=== PATIENT | male | born 1930 | race Caucasian/White ===

== ENCOUNTER 2019-07-31 19:57 | Inpatient (IN) | payer MEDICARE ==
[~2019-07-31] VITALS: Ht 175.3 cm; Wt 79.4 kg
--- NOTE | 2019-07-31 21:42 | PDOC ---
Exam Note: Ralph Note: Please also refer to the separate dictated note~for this date of service dictated separately. Discussed the patient with Nursing staff reviewed the chart.~Reviewed interim history and current functioning. Reviewed vital signs,~Labs/ Radiology~and current medications noted below. Continue current treatment with the changes noted in the dictated addendum note Current Medications: I have reviewed the current psychotropics carefully including drug interactions. Risk benefit ratio favors no change other than as noted in my dictated progress note. DENVER RAY MD Jul 31, 2019 21:42
[2019-07-31] MEDS ORDERED: METO50TA6 PO (21:56)
[2019-07-31] MEDS ORDERED: POLY2500 MC (21:56)
[2019-07-31] MEDS ORDERED: ACET650T6 PO (21:56)
[2019-07-31] MEDS ORDERED: MECL25TA3 PO (21:56)
[2019-07-31] MEDS ORDERED: RIVA1PAT22 TD (21:56)
[2019-07-31] MEDS ORDERED: METF500T16 PO (21:56)
[2019-07-31] MEDS ORDERED: ASPI325T8 PO (21:56)
[2019-07-31] MEDS ORDERED: FERR325T14 PO (21:56)
[2019-07-31] MEDS ORDERED: NITR0.4T24 SL (21:56)
[2019-07-31] MEDS ORDERED: ACET-1707 PO (21:56)
[2019-07-31] MEDS ORDERED: NIFE-11 PO (21:56)
[2019-07-31] MEDS ORDERED: CYAN-25 PO (21:56)
[2019-07-31] MEDS ORDERED: GLIP5TAB10 PO (21:56)
[2019-07-31] MEDS ORDERED: SITA50TA PO (21:56)
[2019-07-31] MEDS ORDERED: QUET25TA5 PO (22:05)
[2019-07-31] MEDS ORDERED: QUET50TA5 PO (22:05)
[2019-07-31] MEDS ORDERED: OLAN5TAB9 PO (22:05)
[2019-07-31] MEDS ORDERED: LORA0.5T PO (22:05)
[2019-07-31] MEDS ORDERED: METHYL SALICYLATE/MENTHOL TOPICAL OINTMENT 57GM TUBE. TP PRN (22:15)
[2019-07-31] MEDS ORDERED: MAG HYDROX/AL HYDROX/SIMETH 30 ML ORAL.SUSP PO PRN (22:15)
[2019-07-31] MEDS ORDERED: MAGNESIUM HYDROXIDE 2,400 MG/30 ML ORAL.SUSP. PO PRN (22:15)
[2019-07-31] MEDS ORDERED: NITROGLYCERIN SUBLINGUAL 0.4 MG BOTTLE OF 25. SL PRN (22:15)
[2019-07-31] MEDS: MECLIZINE 12.5 MG TABLET. PO SCH (22:29)
[2019-07-31] MEDS: QUEtiapine 25 MG TABLET. PO SCH (22:29)
[2019-07-31] MEDS: FERROUS SULFATE 325 MG TABLET. PO SCH (22:29)
[2019-07-31] MEDS: METOPROLOL TART IMMED RELEASE 50 MG TABLET PO SCH (22:30)
[2019-07-31] MEDS: glipiZIDE 5 MG TABLET PO SCH (22:31)
[2019-07-31] MEDS: diphenhydrAMINE HCL 25 MG CAPSULE PO SCH (22:32)
[2019-07-31] MEDS: ACETAMINOPHEN 500 MG TABLET PO SCH (22:32)
[2019-08-01] MEDS: OLANZapine 5 MG TABLET PO PRN (03:17)
[2019-08-01 05:39] VITALS: BP 133/64
[2019-08-01] MEDS: FERROUS SULFATE 325 MG TABLET. PO SCH ×3 (07:55→20:50)
[2019-08-01] MEDS: glipiZIDE 5 MG TABLET PO SCH ×2 (07:55→20:51)
[2019-08-01] MEDS: METOPROLOL TART IMMED RELEASE 50 MG TABLET PO SCH ×2 (07:55→21:08)
[2019-08-01] MEDS: MECLIZINE 12.5 MG TABLET. PO SCH ×2 (07:56→20:51)
[2019-08-01] MEDS: QUEtiapine 50 MG TABLET. PO SCH (08:03)
[2019-08-01] MEDS: ASPIRIN 325 MG TABLET PO SCH (08:04)
[2019-08-01] MEDS: LINAGLIPTIN 5 MG TABLET PO SCH (08:04)
[2019-08-01] MEDS: metFORMIN 500 MG TABLET PO SCH ×2 (08:04→15:45)
[2019-08-01] MEDS: CYANOCOBALAMIN (VITAMIN B-12) 1,000 MCG TABLET. PO SCH (08:04)
[2019-08-01] MEDS: RIVASTIGMINE 4.6MG PATCH. TD SCH (08:05)
[2019-08-01] MEDS: ACETAMINOPHEN 325 MG TABLET PO SCH ×2 (08:05→15:45)
[2019-08-01] MEDS: POLYETHYLENE GLYCOL 3350 17 GM PACKET. PO SCH (08:05)
[2019-08-01 08:20] LABS: BASO # 0.1 x10^3/uL (0.0-0.2); BASO % 1 % (0-3); EOS # 0.2 x10^3/uL (0.0-0.7); EOS % 2 % (0-3); HEMATOCRIT 32.5 % (39.0-53.0); HEMOGLOBIN 10.3 g/dL (13.0-17.5); LYMPH # 1.8 x10^3/uL (1.0-4.8); LYMPH % 15 % (24-48); MEAN CORPUSCULAR HEMOGLOBIN 32 pg (25-35); MEAN CORPUSCULAR HGB CONC 32 g/dL (31-37); MEAN CORPUSCULAR VOLUME 100 fL (79-100); MONO # 1.9 x10^3/uL (0.0-1.1); MONO % 16 % (0-9); NEUT % 67 % (31-73); PLATELET COUNT 445 x10^3/uL (140-400); RED BLOOD COUNT 3.27 x10^6/uL (4.30-5.70); RED CELL DISTRIBUTION WIDTH 12.9 % (11.5-14.5); WHITE BLOOD COUNT 11.9 x10^3/uL (4.0-11.0)
[2019-08-01 08:39] LABS: ALBUMIN 2.8 g/dL (3.4-5.0); ALBUMIN/GLOBULIN RATIO 0.5 (1.0-1.7); CALCIUM 9.5 mg/dL (8.5-10.1); CREATININE 1.6 mg/dL (0.7-1.3); GFR 41.1; MAGNESIUM 1.9 mg/dL (1.8-2.4); TOTAL BILIRUBIN 0.6 mg/dL (0.2-1.0); TOTAL PROTEIN 8.1 g/dL (6.4-8.2)
[2019-08-01 11:35] LABS: THYROID STIM HORMONE (TSH) 4.39 uIU/mL (0.358-3.740)
[2019-08-01 12:12] LABS: THYROXINE 6.8 ug/dL (4.5-12.0)
[2019-08-01 15:25] VITALS: BP 112/62
--- NOTE | 2019-08-01 16:21 | RAD ---
Three-view ankle dated 08/01/2019. No comparison available. CLINICAL INDICATION: Pain after injury. FINDINGS: 3 views of right ankle show normal bony alignment. No displaced fracture. No acute osseous or articular abnormality. Talar dome is intact. Surgical ruben over the dorsal aspect of the foot. Mild soft tissue swelling. IMPRESSION: Soft tissue swelling with no evidence of underlying acute bony abnormality. Electronically signed by: Baldo Trent MD (08/01/2019 4:18 PM) [id number]
--- NOTE | 2019-08-01 19:38 | HP ---
ADMIT DATE: 08/01/2019 PSYCHIATRIC ADMISSION HISTORY/EVALUATION IDENTIFYING DATA: The patient is an 89-year-old male referred to us from [facility] where he presented from his assisted living on account of increasing hallucinations, delusions. He was swinging at staff. He was agitated, wandering into other residents' room, threatening to hit staff. He is having sleep and appetite changes, unable to care for himself. He was delusional, fixated, thinking he had trashed her truck and was seeing cats around him. The patient had failed outpatient psychiatric interventions, referred for inpatient psychiatric stabilization. CHIEF COMPLAINT: "I came yesterday." This is accurate. HISTORY OF PRESENT ILLNESS: The patient has a history of early dementia, Alzheimer's vascular. He has been residing at the [facility] living getting increasingly agitated, restless. He also had some movement disorder, was started on Sinemet. The hallucinations got much worse and the Sinemet was stopped. The agitation at the assisted living was significant to a point that attempts at changing his psychotropics including IM Haldol, Seroquel, Zyprexa, Ativan p.r.n. and having a one-on-one sitter all had failed. No clear history of bipolar disorder. MEDICAL HISTORY: Positive for coronary artery disease, hypertension, hyperkalemia, type 2 diabetes mellitus, controlled with oral meds. ALLERGIES: IBUPROFEN, LEVOFLOXACIN, SINEMET. CODE STATUS: DNR. ACCU-CHEKS: None. DIET: Diabetic. Takes medications whole. Ambulates 2-person assist. UA negative at [facility]. CURRENT PSYCHOTROPICS: Exelon patch 4.6 mg a day, Seroquel 25 mg a.m. and 25 mg at bedtime, Ativan p.r.n. and Zyprexa 5 mg t.i.d. p.r.n. FAMILY HISTORY: Noncontributory. SOCIAL HISTORY: No history of alcohol, drug abuse, physical, sexual or elder abuse. He is not known to be a perpetrator. REACTION TO HOSPITALIZATION: The patient accepting of this. ASSETS: Supportive family, stable living at the above facility. MENTAL STATUS EXAMINATION: The patient was seen individually on the evening of 08/01 in his room. He was lying in bed, oriented to himself and situation. He knew he came in the night before. Speech was difficult to understand at times, often response is monosyllabic. Abstraction fair, computation impaired, language function intact, attention span short. Short term memory is impaired. No active hallucinations, suicidal or homicidal ideation. LABORATORY DATA: Reviewed. IMPRESSION: Major neurocognitive disorder, early Alzheimer vascular rule out Lewy body with delusion, depression, behavioral disturbance; anxiety disorder, unspecified; psychotic disorder, unspecified; impulse control disorder, unspecified. Rest unchanged as above. PLAN: Admit to Geropsychiatry Unit at [facility]. I will see the patient daily individually from a psychiatric standpoint. Medical followup per Dr. Cheek. Continue the patient on his current psychotropics. Get his past psychiatric records. We will go ahead and add Remeron 7.5 mg at bedtime to help with his insomnia and should help his anxiety as well. May need to increase the Exelon patch in due course. We will make further adjustments as clinically indicated. MAN Nany RAY MD DR: LEYDI/bethany JOB#: [id number] / [id number]
--- NOTE | 2019-08-01 19:54 | PDOC ---
Exam Note: Ralph Note: Please also refer to the separate dictated note~for this date of service dictated separately.~Patient seen individually. Discussed the patient with Nursing staff reviewed the chart.~Reviewed interim history and current functioning. Reviewed vital signs,~Labs/ Radiology~and current medications noted below. Continue current treatment with the changes noted in the dictated addendum note Assessment: Vital Signs/I&O: Vital Signs Date Time Temp Pulse Resp B/P (MAP) Pulse Ox O2 Delivery O2 Flow Rate FiO2 08/01/19 15:25 97.8 79 18 112/62 (79) 96 08/01/19 05:39 Nasal Cannula 2.0 Labs: Laboratory Tests Test 08/01/19 07:45 White Blood Count 11.9 x10^3/uL (4.0-11.0) H Red Blood Count 3.27 x10^6/uL (4.30-5.70) L Hemoglobin 10.3 g/dL (13.0-17.5) L Hematocrit 32.5 % (39.0-53.0) L Mean Corpuscular Volume 100 fL (79-100) Mean Corpuscular Hemoglobin 32 pg (25-35) Mean Corpuscular Hemoglobin Concent 32 g/dL (31-37) Red Cell Distribution Width 12.9 % (11.5-14.5) Platelet Count 445 x10^3/uL (140-400) H Neutrophils (%) (Auto) 67 % (31-73) Lymphocytes (%) (Auto) 15 % (24-48) L Monocytes (%) (Auto) 16 % (0-9) H Eosinophils (%) (Auto) 2 % (0-3) Basophils (%) (Auto) 1 % (0-3) Neutrophils # (Auto) 8.0 x10^3uL (1.8-7.7) H Lymphocytes # (Auto) 1.8 x10^3/uL (1.0-4.8) Monocytes # (Auto) 1.9 x10^3/uL (0.0-1.1) H Eosinophils # (Auto) 0.2 x10^3/uL (0.0-0.7) Basophils # (Auto) 0.1 x10^3/uL (0.0-0.2) Sodium Level 140 mmol/L (136-145) Potassium Level 4.0 mmol/L (3.5-5.1) Chloride Level 103 mmol/L (98-107) Carbon Dioxide Level 28 mmol/L (21-32) Anion Gap 9 (6-14) Blood Urea Nitrogen 36 mg/dL (8-26) H Creatinine 1.6 mg/dL (0.7-1.3) H Estimated GFR (Cockcroft-Gault) 41.1 BUN/Creatinine Ratio 23 (6-20) H Glucose Level 136 mg/dL (70-99) H Calcium Level 9.5 mg/dL (8.5-10.1) Magnesium Level 1.9 mg/dL (1.8-2.4) Iron Level 13 ug/dL (65-175) L Total Iron Binding Capacity 166 ug/dL (250-450) L Iron Saturation 8 % (15-34) L Total Bilirubin 0.6 mg/dL (0.2-1.0) Aspartate Amino Transferase (AST) 23 U/L (15-37) Alanine Aminotransferase (ALT) 14 U/L (16-63) L Alkaline Phosphatase 84 U/L (46-116) Total Protein 8.1 g/dL (6.4-8.2) Albumin 2.8 g/dL (3.4-5.0) L Albumin/Globulin Ratio 0.5 (1.0-1.7) L Triglycerides Level 73 mg/dL (0-150) Cholesterol Level 108 mg/dL (0-200) LDL Cholesterol, Calculated 56 mg/dL (0-100) VLDL Cholesterol, Calculated 14 mg/dL (0-40) Non-HDL Cholesterol Calculated 70 mg/dL (0-129) HDL Cholesterol 38 mg/dL (40-60) L Cholesterol/HDL Ratio 2.0 Thyroid Stimulating Hormone (TSH) 4.390 uIU/mL (0.358-3.740) Thyroxine (T4) 6.8 ug/dL (4.5-12.0) Total Triiodothyronine (TT3) 78 ng/dL (71-180) Current Medications: Meds: Current Medications Medications (Trade) Dose Ordered Sig/Andressa Route PRN Reason Start Time Stop Time Status Last Admin Dose Admin Aspirin (Dave Aspirin) 325 mg DAILY PO 08/01/19 09:00 08/01/19 08:05 Cyanocobalamin (Vitamin B-12) 1,000 mcg DAILY PO 08/01/19 09:00 08/01/19 08:05 Ferrous Sulfate (Feosol) 325 mg TID PO 07/31/19 23:00 08/01/19 14:57 Glipizide (Glucotrol) 5 mg BID PO 07/31/19 23:00 08/01/19 07:56 Metformin HCl (Glucophage) 1,000 mg BIDWMEALS PO 08/01/19 08:00 08/01/19 15:46 Metoprolol Tartrate (Lopressor) 50 mg BID PO 07/31/19 23:00 08/01/19 07:55 Rivastigmine (Exelon) 1 patch DAILY TD 08/01/19 09:00 08/01/19 08:05 Acetaminophen (Tylenol) 650 mg BIDWMEALS PO 08/01/19 08:00 08/01/19 15:46 Diphenhydramine HCl (Benadryl) 25 mg QHS PO 07/31/19 23:00 07/31/19 22:33 Meclizine HCl (Antivert) 25 mg BID PO 07/31/19 23:00 08/01/19 07:56 Nifedipine (Procardia Xl) 60 mg DAILY PO 08/01/19 09:00 08/01/19 10:08 Polyethylene Glycol (miraLAX) 17 gm DAILY PO 08/01/19 09:00 08/01/19 08:05 Linagliptin (Tradjenta) 5 mg DAILY PO 08/01/19 09:00 08/01/19 08:05 Olanzapine (ZyPREXA) 5 mg TID PRN PRN PO ANXIETY / AGITATION 07/31/19 22:15 08/01/19 03:17 Quetiapine Fumarate (SEROquel) 25 mg HS PO 07/31/19 23:00 07/31/19 22:31 Quetiapine Fumarate (SEROquel) 50 mg DAILY PO 08/01/19 09:00 08/01/19 08:05 Acetaminophen (Tylenol) 500 mg QHS PO 07/31/19 23:00 07/31/19 22:33 I have reviewed the current psychotropics carefully including drug interactions. Risk benefit ratio favors no change other than as noted in my dictated progress note. 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
[2019-08-01] MEDS: ACETAMINOPHEN 500 MG TABLET PO SCH (20:50)
[2019-08-01] MEDS: diphenhydrAMINE HCL 25 MG CAPSULE PO SCH (20:50)
[2019-08-01] MEDS: QUEtiapine 25 MG TABLET. PO SCH (20:51)
--- NOTE | 2019-08-01 21:46 | CONS ---
DATE OF CONSULTATION: 08/01/2019 REASON FOR CONSULTATION: Medical management. HISTORY OF PRESENT ILLNESS: The patient is an 89-year-old male patient who apparently was referred from [facility] where he was evaluated and apparently he was admitted on account of swinging at staff, hallucinating, seeing cats, wandering into other residents' rooms and threatening to hit staff, all this in a background of major neurocognitive disorder, vascular Alzheimer with delusion, depression, anxiety disorder, impulse control disorder. Medically, he has multiple medical problems including hypertension, type 2 diabetes, coronary artery disease, chronic dizziness, osteoarthritis and depression. He has also anemia of chronic disease. PAST SURGICAL HISTORY: Unremarkable. PAST PSYCHIATRIC HISTORY: Known to have depression and dementia. SOCIAL HISTORY: The patient has never smoked cigarettes, never drank alcohol or used illicit drugs. He lives in a longterm. ALLERGIES: He is allergic to IBUPROFEN, LEVODOPA and LEVOFLOXACIN. MEDICATIONS: He is currently on following medications: He is on rivastigmine 4.6 mg transdermal patch daily, ferrous sulfate 325 mg 3 times a day, nitroglycerin 0.4 mg sublingually every 5 minutes x 3, metoprolol tartrate 50 mg twice a day, nifedipine 60 mg once a day, aspirin 325 mg once a day, Tylenol 650 mg twice a day, Tylenol with diphenhydramine 1 tablet daily at nighttime for sleep, olanzapine 5 mg 3 times a day, Seroquel 50 mg daily and 25 mg at bedtime. He is also on lorazepam 0.5 mg every 6 hours, meclizine 25 mg twice a day, metformin 1000 mg twice a day, sitagliptin for Januvia 50 mg once a day, glipizide 5 mg twice a day, cyanocobalamin 1000 mcg once a day, polyethylene glycol 17 grams daily. PHYSICAL EXAMINATION: GENERAL: On examining him, he looked well and was clearly in no apparent respiratory distress, slightly pale, no jaundice, cyanosis or thyromegaly. No jugular venous distention. No lower limb edema. VITAL SIGNS: His heart rate was 68, blood pressure was 133/64, temperature was 98.6, respiratory rate was 18 and oxygen saturation was 94% on 2 liters of oxygen by nasal cannula. HEAD, EYES, EARS, NOSE AND THROAT: Showed normocephalic, atraumatic. NECK: Supple. HEART: Showed normal first and second heart sounds with no gallop, rub or murmur. CHEST: Clear to auscultation. No crepitation or rhonchi. ABDOMEN: Distended, soft, nontender. NEUROLOGIC: He is awake, alert, responding at times appropriately. All cranial nerves are intact. He moves extremities without difficulty. 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 He claims that he has broken his right leg, although there is no obvious deformity or swelling. LABORATORY DATA: Showed a white cell count of 11,900, hemoglobin 10, hematocrit 33, MCV 100, and platelet count of 145,000 with normal manual differential. His chemistry showed a serum sodium 140, potassium 4, chloride 103, bicarbonate 28, anion gap of 9, BUN 36, creatinine 1.6, estimated GFR was 41 mL per minute. Her glucose 136, calcium was 9.5, magnesium was 1.9. Her serum iron, TIBC and iron saturation are extremely low. Total bilirubin 0.6, AST, ALT, alkaline phosphatase were all normal. His total protein was 8.1, albumin was 2.8. Serum triglycerides were 73, total cholesterol 108, LDL cholesterol 56, VLDL was 14, HDL cholesterol 38 and the ratio was 2. His TSH was 4.39, total T4 was 6.8. Total T3 was 78. IMPRESSION: In summary, this is an 89-year-old male patient who was admitted for swinging at staff, hallucinating, seeing cats, wandering into other residents' rooms, threatening to hit staff, all this in a background of major neurocognitive disorder, vascular Alzheimer with delusion, depression. Medically, he is known to have coronary artery disease, hypertension, hyperkalemia, and type 2 diabetes. His lab work showed that he has anemia of chronic disease. He has chronic kidney disease. His blood sugar seems to be reasonably controlled. PLAN: My plan is to arrange for him to have a renal Doppler ultrasound and to scan his bladder to make sure that he is not retaining urine. We might have to start him on Flomax and/or finasteride, if deemed necessary. Thank you, Dr. Greene for allowing me to participate in the care of this patient. BONIFACIO KHANNA MD DR: GEORGE/bethany JOB#: [id number] / [id number]
[2019-08-02 01:10] LABS: HEMOGLOBIN A1C 7.3 % (4.8-5.6)
[2019-08-02] MEDS: OLANZapine 5 MG TABLET PO PRN (02:43)
[2019-08-02] MEDS: ACETAMINOPHEN 325 MG TABLET PO PRN (02:44)
[2019-08-02 05:55] VITALS: BP 110/59
[2019-08-02] MEDS: ACETAMINOPHEN 325 MG TABLET PO SCH ×2 (07:43→16:55)
[2019-08-02] MEDS: MECLIZINE 12.5 MG TABLET. PO SCH ×2 (07:43→21:37)
[2019-08-02] MEDS: ASPIRIN 325 MG TABLET PO SCH (07:43)
[2019-08-02] MEDS: metFORMIN 500 MG TABLET PO SCH ×2 (07:43→16:54)
[2019-08-02] MEDS: glipiZIDE 5 MG TABLET PO SCH ×2 (07:44→21:37)
[2019-08-02] MEDS: POLYETHYLENE GLYCOL 3350 17 GM PACKET. PO SCH (07:44)
[2019-08-02] MEDS: FERROUS SULFATE 325 MG TABLET. PO SCH ×3 (07:44→21:34)
[2019-08-02] MEDS: LINAGLIPTIN 5 MG TABLET PO SCH (07:44)
[2019-08-02] MEDS: CYANOCOBALAMIN (VITAMIN B-12) 1,000 MCG TABLET. PO SCH (07:45)
[2019-08-02] MEDS: METOPROLOL TART IMMED RELEASE 50 MG TABLET PO SCH ×2 (07:45→21:51)
[2019-08-02] MEDS: QUEtiapine 50 MG TABLET. PO SCH (07:45)
[2019-08-02] MEDS: RIVASTIGMINE 4.6MG PATCH. TD SCH (07:45)
--- NOTE | 2019-08-02 07:48 | RAD ---
Examination: RENAL COMPLETE BILATERAL History: Impaired renal function. Comparison/Correlation: None Findings: Renal ultrasound exam was performed by portable technique. Right kidney measures 9.44 cm x 3.92 cm x 4 cm. Left kidney measures 9.6 cm x 2.4 cm x 4.7 cm. Visualization of the kidneys is limited due to overlying bowel gas and the patient's inability to hold his breath during the exam. There is no hydronephrosis or evidence of nephrolithiasis. Renal cortical echotexture is within normal limits. Cortical thinning bilaterally is noted diffusely. Renal contours are grossly unremarkable on this limited exam. Urinary bladder is mostly decompressed but unremarkable. Impression: No hydronephrosis. Electronically signed by: Sea Duvall MD (08/02/2019 7:45 AM) [facility]
[2019-08-02 16:04] VITALS: BP 126/55
[2019-08-02 16:25] LABS: BILIRUBIN,URINE NEG (NEG); CLARITY,URINE HAZY; COLOR,URINE YELLOW; GLUCOSE,URINE NEG (NEG); NITRITE,URINE NEG (NEG); UROBILINOGEN,URINE 0.2 mg/dL (0.2 mg/dL)
[2019-08-02 16:26] LABS: AMORPHOUS SEDIMENT,UR PRESENT /HPF; BACTERIA,URINE 0 /HPF (0-FEW); RBC,URINE OCC /HPF (0-2); SQUAMOUS EPITHELIAL CELL,UR OCC /LPF; WBC,URINE OCC /HPF (0-4)
[2019-08-02] MEDS: diphenhydrAMINE HCL 25 MG CAPSULE PO SCH (21:34)
[2019-08-02] MEDS: ACETAMINOPHEN 500 MG TABLET PO SCH (21:34)
[2019-08-02] MEDS: QUEtiapine 25 MG TABLET. PO SCH (21:34)
[2019-08-02] MEDS: MIRTAZAPINE 7.5 MG TABLET. PO SCH (21:37)
--- NOTE | 2019-08-02 21:40 | PDOC ---
Exam Note: Ralph Note: Please also refer to the separate dictated note~for this date of service dictated separately.~Patient seen individually. Discussed the patient with Nursing staff reviewed the chart.~Reviewed interim history and current functioning. Reviewed vital signs,~Labs/ Radiology~and current medications noted below. Continue current treatment with the changes noted in the dictated addendum note Assessment: Vital Signs/I&O: Vital Signs Date Time Temp Pulse Resp B/P (MAP) Pulse Ox O2 Delivery O2 Flow Rate FiO2 08/02/19 16:04 97.2 65 20 126/55 (78) 96 3.0 08/01/19 05:39 Nasal Cannula I & O 08/01/19 08/01/19 08/02/19 15:00 23:00 07:00 Intake Total 480 ml 120 ml Output Total 400 ml Balance 80 ml 120 ml Labs: Laboratory Tests Test 08/02/19 15:31 Urine Collection Type Unknown Urine Color Yellow Urine Clarity Hazy Urine pH 5.0 Urine Specific Foster 1.015 Urine Protein Trace (NEG-TRACE) Urine Glucose (UA) Neg mg/dL (NEG) Urine Ketones (Stick) Neg mg/dL (NEG) Urine Blood Trace (NEG) Urine Nitrite Neg (NEG) Urine Bilirubin Neg (NEG) Urine Urobilinogen Dipstick 0.2 mg/dL (0.2 mg/dL) Urine Leukocyte Esterase Neg (NEG) Urine RBC Occ /HPF (0-2) Urine WBC Occ /HPF (0-4) Urine Squamous Epithelial Cells Occ /LPF Urine Amorphous Sediment Present /HPF Urine Bacteria 0 /HPF (0-FEW) Urine Mucus Slight /LPF Current Medications: Meds: Current Medications Medications (Trade) Dose Ordered Sig/Andressa Route PRN Reason Start Time Stop Time Status Last Admin Dose Admin Mirtazapine (Remeron) 7.5 mg QHS PO 08/02/19 21:00 08/02/19 21:37 I have reviewed the current psychotropics carefully including drug interactions. Risk benefit ratio favors no change other than as noted in my dictated progress note. 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
[2019-08-03 06:10] VITALS: BP 106/56
[2019-08-03] MEDS: RIVASTIGMINE 4.6MG PATCH. TD SCH (07:54)
[2019-08-03] MEDS: POLYETHYLENE GLYCOL 3350 17 GM PACKET. PO SCH (07:54)
[2019-08-03] MEDS: METOPROLOL TART IMMED RELEASE 50 MG TABLET PO SCH ×2 (07:55→19:27)
[2019-08-03] MEDS: CYANOCOBALAMIN (VITAMIN B-12) 1,000 MCG TABLET. PO SCH (07:55)
[2019-08-03] MEDS: FERROUS SULFATE 325 MG TABLET. PO SCH ×3 (07:55→19:26)
[2019-08-03] MEDS: metFORMIN 500 MG TABLET PO SCH ×2 (07:55→17:05)
[2019-08-03] MEDS: ACETAMINOPHEN 325 MG TABLET PO SCH ×2 (07:55→17:05)
[2019-08-03] MEDS: glipiZIDE 5 MG TABLET PO SCH ×2 (07:56→19:26)
[2019-08-03] MEDS: QUEtiapine 50 MG TABLET. PO SCH ×2 (07:56→19:33)
[2019-08-03] MEDS: MECLIZINE 12.5 MG TABLET. PO SCH ×2 (07:56→19:27)
[2019-08-03] MEDS: ASPIRIN 325 MG TABLET PO SCH (07:56)
[2019-08-03] MEDS: LINAGLIPTIN 5 MG TABLET PO SCH (07:56)
[2019-08-03 16:21] VITALS: BP 116/50
[2019-08-03] MEDS: ACETAMINOPHEN 500 MG TABLET PO SCH (19:26)
[2019-08-03] MEDS: MIRTAZAPINE 7.5 MG TABLET. PO SCH (19:26)
[2019-08-03] MEDS: diphenhydrAMINE HCL 25 MG CAPSULE PO SCH (19:31)
[2019-08-03] MEDS: TAMSULOSIN 0.4 MG CAP.ER.24H. PO SCH (19:33)
--- NOTE | 2019-08-03 21:37 | PDOC ---
Exam Note: Ralph Note: Please also refer to the separate dictated note~for this date of service dictated separately.~Patient seen individually. Discussed the patient with Nursing staff reviewed the chart.~Reviewed interim history and current functioning. Reviewed vital signs,~Labs/ Radiology~and current medications noted below. Continue current treatment with the changes noted in the dictated addendum note Assessment: Vital Signs/I&O: Vital Signs Date Time Temp Pulse Resp B/P (MAP) Pulse Ox O2 Delivery O2 Flow Rate FiO2 08/03/19 19:29 100 116/50 08/03/19 16:21 98.9 18 96 08/03/19 06:10 3.0 08/01/19 05:39 Nasal Cannula I & O 08/02/19 08/02/19 08/03/19 14:59 22:59 06:59 Intake Total 600 ml 240 ml Output Total 400 ml 420 ml Balance 600 ml -160 ml -420 ml Current Medications: Meds: Current Medications Medications (Trade) Dose Ordered Sig/Andressa Route PRN Reason Start Time Stop Time Status Last Admin Dose Admin Tamsulosin HCl (Flomax) 0.4 mg QHS PO 08/03/19 21:00 08/03/19 19:33 Quetiapine Fumarate (SEROquel) 75 mg QHS PO 08/03/19 21:00 08/03/19 19:33 I have reviewed the current psychotropics carefully including drug interactions. Risk benefit ratio favors no change other than as noted in my dictated progress note. 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
--- NOTE | 2019-08-03 22:03 | PN ---
DATE: 08/02/2019 PSYCHIATRIC PROGRESS NOTE. This late entry of 08/02/2019 covers the elements not covered in my initial note. SUBJECTIVE: I met with the patient on the evening of 08/02/2019. The patient slept 8 hours previous night. He has had difficulty urinating. Bladder scans are being done and straight cath and I will defer to Dr. Cheek as he may have prostatic enlargement. He remains on 3 liters oxygen, less confused, has some tremors. His daughter is a nurse and called to check in on the patient. This is a question whether he has Parkinson's disease. We will refer to Dr. Fang, Neurology for this. REVIEW OF SYSTEMS: Ambulation impaired. No CV, , pulmonary, eye, ENT system symptoms on review. Has some shortness of breath, remains on O2 supplements. MENTAL STATUS EXAM: Oriented to himself. Insight, judgment, recent memory is impaired. Language function intact. Attention span short. Mood and affect remain somewhat anxious, labile. LABORATORY DATA: Reviewed. IMPRESSION: Unchanged from initial note. PLAN: No change from initial note. MAN Nany RAY MD DR: LEYDI/bethany JOB#: [id number] / [id number]
[2019-08-03] MEDS: ACETAMINOPHEN 325 MG TABLET PO PRN (23:40)
[2019-08-04 05:56] VITALS: BP 120/75
[2019-08-04] MEDS: ASPIRIN 325 MG TABLET PO SCH (07:49)
[2019-08-04] MEDS: METOPROLOL TART IMMED RELEASE 50 MG TABLET PO SCH ×2 (07:49→20:09)
[2019-08-04] MEDS: MECLIZINE 12.5 MG TABLET. PO SCH ×2 (07:49→20:07)
[2019-08-04] MEDS: CYANOCOBALAMIN (VITAMIN B-12) 1,000 MCG TABLET. PO SCH (07:50)
[2019-08-04] MEDS: glipiZIDE 5 MG TABLET PO SCH ×2 (07:50→20:08)
[2019-08-04] MEDS: metFORMIN 500 MG TABLET PO SCH ×2 (07:50→17:13)
[2019-08-04] MEDS: LINAGLIPTIN 5 MG TABLET PO SCH (07:50)
[2019-08-04] MEDS: FERROUS SULFATE 325 MG TABLET. PO SCH ×3 (07:50→20:07)
[2019-08-04] MEDS: ACETAMINOPHEN 325 MG TABLET PO SCH ×2 (07:51→17:12)
[2019-08-04] MEDS: POLYETHYLENE GLYCOL 3350 17 GM PACKET. PO SCH (07:51)
[2019-08-04] MEDS: RIVASTIGMINE 9.5MG PATCH. TD SCH (07:55)
[2019-08-04] MEDS: FINASTERIDE 5 MG TABLET PO SCH (07:55)
[2019-08-04 15:45] VITALS: BP 121/57
[2019-08-04] MEDS: MIRTAZAPINE 15 MG TABLET PO SCH ×2 (20:07→20:52)
[2019-08-04] MEDS: diphenhydrAMINE HCL 25 MG CAPSULE PO SCH (20:07)
[2019-08-04] MEDS: TAMSULOSIN 0.4 MG CAP.ER.24H. PO SCH (20:08)
[2019-08-04] MEDS: QUEtiapine 50 MG TABLET. PO SCH (20:09)
[2019-08-04] MEDS: ACETAMINOPHEN 500 MG TABLET PO SCH (20:10)
--- NOTE | 2019-08-04 21:54 | PDOC ---
Exam Note: Ralph Note: Please also refer to the separate dictated note~for this date of service dictated separately.~Patient seen individually. Discussed the patient with Nursing staff reviewed the chart.~Reviewed interim history and current functioning. Reviewed vital signs,~Labs/ Radiology~and current medications noted below. Continue current treatment with the changes noted in the dictated addendum note Assessment: Vital Signs/I&O: Vital Signs Date Time Temp Pulse Resp B/P (MAP) Pulse Ox O2 Delivery O2 Flow Rate FiO2 08/04/19 20:10 80 121/57 08/04/19 15:45 98.4 24 93 Nasal Cannula 2.0 I & O 08/03/19 08/03/19 08/04/19 15:00 23:00 07:00 Intake Total 600 ml 120 ml 240 ml Output Total 550 ml Balance 600 ml 120 ml -310 ml Current Medications: Meds: Current Medications Medications (Trade) Dose Ordered Sig/Andressa Route PRN Reason Start Time Stop Time Status Last Admin Dose Admin Finasteride (Proscar) 5 mg DAILY PO 08/04/19 09:00 08/04/19 07:55 Rivastigmine (Exelon) 1 patch DAILY TD 08/04/19 09:00 08/04/19 07:55 Mirtazapine (Remeron) 15 mg QHS PO 08/04/19 18:30 08/04/19 20:10 I have reviewed the current psychotropics carefully including drug interactions. Risk benefit ratio favors no change other than as noted in my dictated progress note. 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
--- NOTE | 2019-08-05 00:15 | PN ---
DATE: 08/03/2019 This late entry 08/03/2019, covers elements not covered in my initial note. SUBJECTIVE: I met with the patient evening of 08/03/2019. The patient slept just 3 hours previous night. He remains confused, anxious. Admits to being depressed and sad, somewhat flat affect. Per nursing report, he gets straight catheterization for urinary retention. REVIEW OF SYSTEMS: Difficulty breathing on oxygen supplements, impaired ambulation, difficulty with urination. No CV, , pulmonary, eye system symptoms other than above. MENTAL STATUS EXAM: Oriented to himself and situation. Speech is coherent, has some latency, anxious, somewhat suspicious. Abstraction fair, computation impaired, language function intact, attention span short. Mood and affect somewhat labile. LABORATORY DATA: Reviewed. IMPRESSION: Major neurocognitive disorder; Alzheimer; vascular with delusion; depression; anxiety disorder, unspecified; impulse control disorder, unspecified. PLAN: Start trazodone 50 mg at bedtime p.r.n., march repeat x 1. Increase Seroquel in due course, but for now given some of his withdrawal apathetic appearance during the day. We will change the Seroquel 50 a.m., 25 at bedtime to 75 mg at bedtime, increase Exelon patch from 4.6 mg a day to 9.5 mg a day. Rest unchanged for now. MAN Nany RAY MD DR: LEYDI/bethany JOB#: [id number] / [id number]
[2019-08-05] MEDS: OLANZapine 5 MG TABLET PO PRN ×2 (04:09→23:53)
[2019-08-05 05:58] VITALS: BP 144/79
[2019-08-05] MEDS: glipiZIDE 5 MG TABLET PO SCH ×2 (07:51→19:35)
[2019-08-05] MEDS: METOPROLOL TART IMMED RELEASE 50 MG TABLET PO SCH ×2 (07:51→19:36)
[2019-08-05] MEDS: FERROUS SULFATE 325 MG TABLET. PO SCH ×3 (07:51→19:35)
[2019-08-05] MEDS: MECLIZINE 12.5 MG TABLET. PO SCH ×2 (07:52→19:35)
[2019-08-05] MEDS: POLYETHYLENE GLYCOL 3350 17 GM PACKET. PO SCH (07:54)
[2019-08-05] MEDS: ASPIRIN 325 MG TABLET PO SCH (08:00)
[2019-08-05] MEDS: CYANOCOBALAMIN (VITAMIN B-12) 1,000 MCG TABLET. PO SCH (08:00)
[2019-08-05] MEDS: RIVASTIGMINE 9.5MG PATCH. TD SCH (08:01)
[2019-08-05] MEDS: FINASTERIDE 5 MG TABLET PO SCH (08:01)
[2019-08-05] MEDS: ACETAMINOPHEN 325 MG TABLET PO SCH ×2 (08:01→17:03)
[2019-08-05] MEDS: LINAGLIPTIN 5 MG TABLET PO SCH (08:02)
[2019-08-05] MEDS: metFORMIN 500 MG TABLET PO SCH ×2 (08:02→17:02)
[2019-08-05] MEDS: LORazepam 0.5 MG TABLET PO PRN ×2 (13:20→13:33)
[2019-08-05 15:44] VITALS: BP 124/55
[2019-08-05] MEDS: TAMSULOSIN 0.4 MG CAP.ER.24H. PO SCH (19:35)
[2019-08-05] MEDS: diphenhydrAMINE HCL 25 MG CAPSULE PO SCH (19:35)
[2019-08-05] MEDS: ACETAMINOPHEN 500 MG TABLET PO SCH (19:36)
[2019-08-05] MEDS: MIRTAZAPINE 15 MG TABLET PO SCH (19:36)
[2019-08-05] MEDS: risperiDONE 0.25 MG TABLET. PO SCH (19:40)
--- NOTE | 2019-08-05 21:59 | PDOC ---
Exam Note: Ralph Note: Please also refer to the separate dictated note~for this date of service dictated separately.~Patient seen individually. Discussed the patient with Nursing staff reviewed the chart.~Reviewed interim history and current functioning. Reviewed vital signs,~Labs/ Radiology~and current medications noted below. Continue current treatment with the changes noted in the dictated addendum note Assessment: Vital Signs/I&O: Vital Signs Date Time Temp Pulse Resp B/P (MAP) Pulse Ox O2 Delivery O2 Flow Rate FiO2 08/05/19 19:41 91 124/55 08/05/19 15:44 98.0 18 98 08/05/19 05:58 Nasal Cannula 3.0 I & O 0 08/04/19 08/04/19 08/05/19 15:00 23:00 07:00 Intake Total 600 ml 240 ml Balance 600 ml 240 ml Current Medications: Meds: Current Medications Medications (Trade) Dose Ordered Sig/Andressa Route PRN Reason Start Time Stop Time Status Last Admin Dose Admin Risperidone (RisperDAL) 0.25 mg HS PO 08/05/19 21:00 08/05/19 19:41 I have reviewed the current psychotropics carefully including drug interactions. Risk benefit ratio favors no change other than as noted in my dictated progress note. Diagnosis: Problems: (1) Anxiety disorder (2) Dementia, vascular, with depression (3) Dementia in Alzheimer's disease with depression (4) Major depressive disorder, recurrent episode (5) Impulse control disorder DENVER RAY MD Aug 05, 2019 21:59
[2019-08-06] MEDS: traZODone 50 MG TABLET. PO PRN ×3 (00:58→23:08)
--- NOTE | 2019-08-06 01:07 | PN ---
DATE: 08/04/2019 PSYCHIATRIC PROGRESS NOTE This late entry 08/04/2019 covers the elements not covered in my initial note. SUBJECTIVE: I met with the patient in the evening of 08/04/2019. Jose Angel Lewis RN, the patient slept for three-quarter hours previous night. At night, he was cooperative. He has an indwelling catheter secondary to residual urine postvoid. He is irritable in the morning, but cooperative with medications, taking them whole. He has been in the day room, alert to himself, felt he is in high school. REVIEW OF SYSTEMS: Shortness of breath on O2 supplements, impaired ambulation in wheelchair. No CV, , eye, ENT system symptoms on review. MENTAL STATUS EXAM: Oriented to himself. Insight, judgment, recent and remote memory, attention, concentration and fund of knowledge are poor, consistent with his diagnosis mentioned in my initial note. PLAN: No change from initial note. DENVER RAY MD DR: LEYDI/bethany JOB#: [id number] / [id number]
[2019-08-06] MEDS: ACETAMINOPHEN 325 MG TABLET PO PRN (02:29)
[2019-08-06 05:57] VITALS: BP 123/66
[2019-08-06] MEDS: POLYETHYLENE GLYCOL 3350 17 GM PACKET. PO SCH (07:43)
[2019-08-06] MEDS: ACETAMINOPHEN 325 MG TABLET PO SCH ×2 (07:43→16:46)
[2019-08-06] MEDS: FERROUS SULFATE 325 MG TABLET. PO SCH ×3 (07:44→20:14)
[2019-08-06] MEDS: CYANOCOBALAMIN (VITAMIN B-12) 1,000 MCG TABLET. PO SCH (07:44)
[2019-08-06] MEDS: METOPROLOL TART IMMED RELEASE 50 MG TABLET PO SCH ×2 (07:44→20:12)
[2019-08-06] MEDS: glipiZIDE 5 MG TABLET PO SCH ×2 (07:44→20:12)
[2019-08-06] MEDS: MECLIZINE 12.5 MG TABLET. PO SCH ×2 (07:44→20:10)
[2019-08-06] MEDS: metFORMIN 500 MG TABLET PO SCH ×2 (07:45→16:46)
[2019-08-06] MEDS: RIVASTIGMINE 9.5MG PATCH. TD SCH (07:45)
[2019-08-06] MEDS: FINASTERIDE 5 MG TABLET PO SCH (07:45)
[2019-08-06] MEDS: LINAGLIPTIN 5 MG TABLET PO SCH (07:45)
[2019-08-06] MEDS: ASPIRIN 325 MG TABLET PO SCH (07:45)
[2019-08-06 16:33] VITALS: BP 144/73
[2019-08-06] MEDS: TAMSULOSIN 0.4 MG CAP.ER.24H. PO SCH (20:10)
[2019-08-06] MEDS: MIRTAZAPINE 15 MG TABLET PO SCH (20:10)
[2019-08-06] MEDS: risperiDONE 0.25 MG TABLET. PO SCH (20:10)
[2019-08-06] MEDS: ACETAMINOPHEN 500 MG TABLET PO SCH (20:10)
[2019-08-06] MEDS: diphenhydrAMINE HCL 25 MG CAPSULE PO SCH (20:10)
--- NOTE | 2019-08-06 21:39 | PDOC ---
Exam Note: Ralph Note: Please also refer to the separate dictated note~for this date of service dictated separately.~Patient seen individually. Discussed the patient with Nursing staff reviewed the chart.~Reviewed interim history and current functioning. Reviewed vital signs,~Labs/ Radiology~and current medications noted below. Continue current treatment with the changes noted in the dictated addendum note Assessment: Vital Signs/I&O: Vital Signs Date Time Temp Pulse Resp B/P (MAP) Pulse Ox O2 Delivery O2 Flow Rate FiO2 08/06/19 20:14 64 144/73 08/06/19 16:33 97.9 18 08/06/19 05:57 91 08/05/19 05:58 Nasal Cannula 3.0 I & O 08/05/19 08/05/19 08/06/19 14:59 22:59 06:59 Intake Total 420 ml 240 ml 120 ml Balance 420 ml 240 ml 120 ml Current Medications: I have reviewed the current psychotropics carefully including drug interactions. Risk benefit ratio favors no change other than as noted in my dictated progress note. 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
[2019-08-07] MEDS: traZODone 50 MG TABLET. PO PRN ×2 (01:00→20:07)
[2019-08-07 05:44] VITALS: BP 127/58
[2019-08-07] MEDS: RIVASTIGMINE 9.5MG PATCH. TD SCH (09:11)
[2019-08-07] MEDS: FERROUS SULFATE 325 MG TABLET. PO SCH ×3 (09:27→20:07)
[2019-08-07] MEDS: metFORMIN 500 MG TABLET PO SCH ×2 (09:27→17:44)
[2019-08-07] MEDS: glipiZIDE 5 MG TABLET PO SCH ×2 (09:28→20:07)
[2019-08-07] MEDS: FINASTERIDE 5 MG TABLET PO SCH (09:28)
[2019-08-07] MEDS: ASPIRIN 325 MG TABLET PO SCH (09:28)
[2019-08-07] MEDS: CYANOCOBALAMIN (VITAMIN B-12) 1,000 MCG TABLET. PO SCH (09:28)
[2019-08-07] MEDS: ACETAMINOPHEN 325 MG TABLET PO SCH ×2 (09:28→17:44)
[2019-08-07] MEDS: MECLIZINE 12.5 MG TABLET. PO SCH ×2 (09:29→20:07)
[2019-08-07] MEDS: POLYETHYLENE GLYCOL 3350 17 GM PACKET. PO SCH (09:29)
[2019-08-07] MEDS: LINAGLIPTIN 5 MG TABLET PO SCH (09:29)
[2019-08-07 09:32] VITALS: BP 123/85
[2019-08-07] MEDS: METOPROLOL TART IMMED RELEASE 50 MG TABLET PO SCH ×2 (09:35→20:06)
--- NOTE | 2019-08-07 10:50 | RAD ---
Chest, PA and Lateral: Technique: PA and lateral views of the chest were obtained. History: Aspiration. Comparison: None. Findings: The cardiomediastinal silhouette grossly appears unremarkable. Patchy bibasilar lung airspace opacities likely atelectasis or infiltrates. IMPRESSION: Patchy bibasilar lung airspace opacities likely atelectasis or infiltrates. Electronically signed by: Martin Block MD (08/07/2019 10:47 AM) [place] [id number]
[2019-08-07 16:56] VITALS: BP 126/69
[2019-08-07] MEDS: OLANZapine 5 MG TABLET PO PRN (17:44)
[2019-08-07] MEDS: TAMSULOSIN 0.4 MG CAP.ER.24H. PO SCH (20:07)
[2019-08-07] MEDS: ACETAMINOPHEN 500 MG TABLET PO SCH (20:07)
[2019-08-07] MEDS: MIRTAZAPINE 15 MG TABLET PO SCH (20:07)
[2019-08-07] MEDS: risperiDONE 0.25 MG TABLET. PO SCH (20:07)
[2019-08-07] MEDS: diphenhydrAMINE HCL 25 MG CAPSULE PO SCH (20:07)
--- NOTE | 2019-08-07 21:59 | PDOC ---
Exam Note: Ralph Note: Please also refer to the separate dictated note~for this date of service dictated separately.~Patient seen individually. Discussed the patient with Nursing staff reviewed the chart.~Reviewed interim history and current functioning. Reviewed vital signs,~Labs/ Radiology~and current medications noted below. Continue current treatment with the changes noted in the dictated addendum note Assessment: Vital Signs/I&O: Vital Signs Date Time Temp Pulse Resp B/P (MAP) Pulse Ox O2 Delivery O2 Flow Rate FiO2 08/07/19 20:09 108 126/69 08/07/19 16:56 97.0 16 98 08/07/19 09:32 Room Air 3.0 I & O 08/06/19 08/06/19 08/07/19 15:00 23:00 07:00 Intake Total 720 ml 240 ml 120 ml Output Total 850 ml Balance 720 ml -610 ml 120 ml Current Medications: I have reviewed the current psychotropics carefully including drug interactions. Risk benefit ratio favors no change other than as noted in my dictated progress note. 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
[2019-08-08 05:11] VITALS: BP 132/62
[2019-08-08] MEDS: ACETAMINOPHEN 325 MG TABLET PO SCH ×2 (06:29→16:44)
[2019-08-08] MEDS: CYANOCOBALAMIN (VITAMIN B-12) 1,000 MCG TABLET. PO SCH (08:03)
[2019-08-08] MEDS: LINAGLIPTIN 5 MG TABLET PO SCH (08:03)
[2019-08-08] MEDS: FINASTERIDE 5 MG TABLET PO SCH (08:03)
[2019-08-08] MEDS: RIVASTIGMINE 9.5MG PATCH. TD SCH (08:03)
[2019-08-08] MEDS: ASPIRIN 325 MG TABLET PO SCH (08:04)
[2019-08-08] MEDS: glipiZIDE 5 MG TABLET PO SCH ×2 (08:04→20:14)
[2019-08-08] MEDS: FERROUS SULFATE 325 MG TABLET. PO SCH ×3 (08:04→20:13)
[2019-08-08] MEDS: metFORMIN 500 MG TABLET PO SCH ×2 (08:04→16:44)
[2019-08-08] MEDS: METOPROLOL TART IMMED RELEASE 50 MG TABLET PO SCH ×2 (08:05→20:13)
[2019-08-08] MEDS: MECLIZINE 12.5 MG TABLET. PO SCH ×2 (08:05→20:13)
[2019-08-08] MEDS: POLYETHYLENE GLYCOL 3350 17 GM PACKET. PO SCH (08:06)
[2019-08-08] MEDS: CHOLECALCIFEROL (VITAMIN D3) 50,000 UNIT CAPSULE PO SCH (08:13)
--- NOTE | 2019-08-08 08:42 | PN ---
DATE: 08/05/2019 PSYCHIATRIC PROGRESS NOTE This late entry 08/05/2019 covers elements not covered in my initial note. SUBJECTIVE: I met with the patient in the evening, staffed at a treatment team meeting earlier in the day. The patient's appetite 75%, average sleep 4-3/4 hours. We will complete the mini mental status exam because some of the information he provided on the psychosocial history was "spot on per social service staff." He has been compliant with medications, cares, and assessment, yelling out in groups and then later talking about people being drunk at night and that he was not drunk. Reportedly, the patient was at the assisted living in [facility], [place], operated by [facility] in [place], which is where he might go with his . He remains paranoid. REVIEW OF SYSTEMS: Ambulation impaired, in wheelchair and shortness of breath, on O2 supplements. No CV, GI, , eye system symptoms on review. Reliability poor. MENTAL STATUS EXAM: Oriented to himself, at times situation. Speech is coherent, abstraction fair, computation impaired, language function intact, attention span short. Mood and affect somewhat labile, anxious. LABORATORY DATA: Reviewed. IMPRESSION: Unchanged from initial note. PLAN: Start Risperdal 0.25 mg at bedtime for his paranoia. Rest unchanged for now. MAN Nany RAY MD DR: LEYDI/bethany JOB#: [id number] / [id number]
[2019-08-08] MEDS ORDERED: predniSONE 20 MG TABLET PO ONE (11:00)
[2019-08-08 15:52] VITALS: BP 115/67
--- NOTE | 2019-08-08 19:48 | PN ---
DATE: 08/06/2019 PSYCHIATRIC PROGRESS NOTE This late entry of date of service 08/06/2019 covers elements not covered in my initial note. SUBJECTIVE: I met with the patient in the evening. The patient slept 1-1/2 hours previous night. He tries to pull out the Williamson's, remains confused, received Ativan p.r.n. yesterday. No p.r.n. for 08/06/2019. REVIEW OF SYSTEMS: Ambulation impaired, in wheelchair. No CV, , pulmonary, or eye system symptoms on review. He remains on oxygen supplements. Reliability poor. At other times, seems more oriented. MENTAL STATUS EXAM: Oriented to himself. Insight, judgment, recent and remote memory, attention, concentration, fund of knowledge poor, consistent with his diagnosis mentioned in my initial note. PLAN: No change from initial note. We will defer medical management to Dr. Cheek. DENVER RAY MD DR: LEYDI/bethany JOB#: [id number] / [id number]
[2019-08-08] MEDS: TAMSULOSIN 0.4 MG CAP.ER.24H. PO SCH (20:13)
[2019-08-08] MEDS: diphenhydrAMINE HCL 25 MG CAPSULE PO SCH (20:13)
[2019-08-08] MEDS: ACETAMINOPHEN 500 MG TABLET PO SCH (20:13)
[2019-08-08] MEDS: MIRTAZAPINE 15 MG TABLET PO SCH (20:13)
[2019-08-08] MEDS: risperiDONE 0.25 MG TABLET. PO SCH (20:13)
--- NOTE | 2019-08-08 22:59 | PDOC ---
Exam Note: Ralph Note: Please also refer to the separate dictated note~for this date of service dictated separately.~Patient seen individually. Discussed the patient with Nursing staff reviewed the chart.~Reviewed interim history and current functioning. Reviewed vital signs,~Labs/ Radiology~and current medications noted below. Continue current treatment with the changes noted in the dictated addendum note Assessment: Vital Signs/I&O: Vital Signs Date Time Temp Pulse Resp B/P (MAP) Pulse Ox O2 Delivery O2 Flow Rate FiO2 08/08/19 20:14 83 115/67 08/08/19 15:52 97.4 20 97 08/08/19 05:11 02@3L continuous 3.0 I & O 0 08/07/19 08/07/19 08/08/19 15:00 23:00 07:00 Intake Total 360 ml 240 ml 120 ml Output Total 1000 ml 800 ml Balance 360 ml -760 ml -680 ml Current Medications: Meds: Current Medications Medications (Trade) Dose Ordered Sig/Andressa Route PRN Reason Start Time Stop Time Status Last Admin Dose Admin Vitamin D (Vitamin D3) 50,000 unit WEEKLY PO 08/08/19 09:00 08/08/19 08:13 Prednisone (Prednisone) 80 mg 1X ONCE PO 08/08/19 11:00 08/08/19 11:01 DC 08/08/19 11:34 I have reviewed the current psychotropics carefully including drug interactions. Risk benefit ratio favors no change other than as noted in my dictated progress note. 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
[2019-08-08] MEDS: OLANZapine 5 MG TABLET PO PRN (23:14)
[2019-08-09] MEDS: traZODone 50 MG TABLET. PO PRN ×2 (00:37→22:17)
--- NOTE | 2019-08-09 01:30 | PN ---
DATE: 08/07/2019 PSYCHIATRIC PROGRESS NOTE This late entry of 08/07/2019 covers elements not covered in my initial note. SUBJECTIVE: I met with the patient on the evening of 08/07/2019. The patient has been trying to pull out his Williamson. He received Ativan p.r.n. yesterday; no p.r.n. on 08/07/2019. He needed to be suctioned in the morning. Chest x-ray, questionably atelectasis; and we will defer to Dr. Cheek. He slept 3-1/2 hours the previous night. REVIEW OF SYSTEMS: Difficulty with his breathing, remains on oxygen supplements. No CV, GI, , eye system symptoms on review. MENTAL STATUS EXAMINATION: The patient is oriented to himself, at times to situation. Insight, judgment, recent and remote memory, attention, concentration, fund of knowledge poor; consistent with his diagnosis mentioned in my initial note. PLAN: No change from initial note. Defer medical management to Dr. Cheek. MAN Nany RAY MD DR: LEYDI/bethany JOB#: [id number] / [id number]
[2019-08-09] MEDS: ASPIRIN 325 MG TABLET PO SCH (08:17)
[2019-08-09] MEDS: FINASTERIDE 5 MG TABLET PO SCH (08:18)
[2019-08-09] MEDS: glipiZIDE 5 MG TABLET PO SCH ×2 (08:18→20:04)
[2019-08-09] MEDS: MECLIZINE 12.5 MG TABLET. PO SCH ×2 (08:18→20:05)
[2019-08-09] MEDS: LINAGLIPTIN 5 MG TABLET PO SCH (08:18)
[2019-08-09] MEDS: metFORMIN 500 MG TABLET PO SCH ×2 (08:18→17:52)
[2019-08-09] MEDS: ACETAMINOPHEN 325 MG TABLET PO SCH ×2 (08:18→17:52)
[2019-08-09] MEDS: CYANOCOBALAMIN (VITAMIN B-12) 1,000 MCG TABLET. PO SCH (08:19)
[2019-08-09] MEDS: FERROUS SULFATE 325 MG TABLET. PO SCH ×3 (08:19→20:04)
[2019-08-09] MEDS: METOPROLOL TART IMMED RELEASE 50 MG TABLET PO SCH ×2 (08:19→20:04)
[2019-08-09] MEDS: RIVASTIGMINE 9.5MG PATCH. TD SCH (08:19)
[2019-08-09] MEDS: POLYETHYLENE GLYCOL 3350 17 GM PACKET. PO SCH (08:19)
[2019-08-09] MEDS ORDERED: predniSONE 20 MG TABLET PO ONE (11:00)
[2019-08-09] MEDS: NYSTATIN TOPICAL POWDER 15GM BOTTLE. TP SCH ×2 (13:58→22:16)
[2019-08-09 15:52] VITALS: BP 130/67
[2019-08-09] MEDS: diphenhydrAMINE HCL 25 MG CAPSULE PO SCH (20:04)
[2019-08-09] MEDS: ACETAMINOPHEN 500 MG TABLET PO SCH (20:04)
[2019-08-09] MEDS: TAMSULOSIN 0.4 MG CAP.ER.24H. PO SCH (20:04)
[2019-08-09] MEDS: MIRTAZAPINE 15 MG TABLET PO SCH (20:05)
[2019-08-09] MEDS: risperiDONE 0.25 MG TABLET. PO SCH (20:05)
--- NOTE | 2019-08-09 21:35 | PDOC ---
Exam Note: Ralph Note: Please also refer to the separate dictated note~for this date of service dictated separately.~Patient seen individually. Discussed the patient with Nursing staff reviewed the chart.~Reviewed interim history and current functioning. Reviewed vital signs,~Labs/ Radiology~and current medications noted below. Continue current treatment with the changes noted in the dictated addendum note Assessment: Vital Signs/I&O: Vital Signs Date Time Temp Pulse Resp B/P (MAP) Pulse Ox O2 Delivery O2 Flow Rate FiO2 08/09/19 20:06 65 130/67 08/09/19 15:52 97.4 16 99 3.0 08/08/19 05:11 02@3L continuous I & O 0 08/08/19 08/08/19 08/09/19 15:00 23:00 07:00 Intake Total 960 ml 480 ml Output Total 800 ml Balance 960 ml -320 ml Current Medications: Meds: Current Medications Medications (Trade) Dose Ordered Sig/Andressa Route PRN Reason Start Time Stop Time Status Last Admin Dose Admin Nystatin (Nystop) 1 giovana BID TP 08/09/19 09:00 08/09/19 13:58 Prednisone (Prednisone) 60 mg 1X ONCE PO 08/09/19 11:00 08/09/19 11:08 DC 08/09/19 13:58 I have reviewed the current psychotropics carefully including drug interactions. Risk benefit ratio favors no change other than as noted in my dictated progress note. 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
[2019-08-10] MEDS: traZODone 50 MG TABLET. PO PRN ×2 (00:01→22:37)
[2019-08-10] MEDS: OLANZapine 5 MG TABLET PO PRN ×2 (00:01→22:37)
[2019-08-10] MEDS: LORazepam 0.5 MG TABLET PO PRN (02:49)
[2019-08-10 06:04] VITALS: BP 119/65
[2019-08-10] MEDS: ACETAMINOPHEN 325 MG TABLET PO SCH ×2 (08:08→16:17)
[2019-08-10] MEDS: LINAGLIPTIN 5 MG TABLET PO SCH (08:08)
[2019-08-10] MEDS: RIVASTIGMINE 9.5MG PATCH. TD SCH (08:08)
[2019-08-10] MEDS: CYANOCOBALAMIN (VITAMIN B-12) 1,000 MCG TABLET. PO SCH (08:09)
[2019-08-10] MEDS: MECLIZINE 12.5 MG TABLET. PO SCH ×2 (08:09→19:41)
[2019-08-10] MEDS: FINASTERIDE 5 MG TABLET PO SCH (08:09)
[2019-08-10] MEDS: ASPIRIN 325 MG TABLET PO SCH (08:10)
[2019-08-10] MEDS: metFORMIN 500 MG TABLET PO SCH ×2 (08:10→16:17)
[2019-08-10] MEDS: METOPROLOL TART IMMED RELEASE 50 MG TABLET PO SCH ×2 (08:10→19:45)
[2019-08-10] MEDS: FERROUS SULFATE 325 MG TABLET. PO SCH ×3 (08:10→19:43)
[2019-08-10] MEDS: glipiZIDE 5 MG TABLET PO SCH ×2 (08:10→19:43)
[2019-08-10] MEDS: POLYETHYLENE GLYCOL 3350 17 GM PACKET. PO SCH (08:11)
[2019-08-10] MEDS: NYSTATIN TOPICAL POWDER 15GM BOTTLE. TP SCH ×2 (08:14→21:20)
[2019-08-10 15:57] VITALS: BP 116/70
[2019-08-10] MEDS: ACETAMINOPHEN 500 MG TABLET PO SCH (19:41)
[2019-08-10] MEDS: MIRTAZAPINE 15 MG TABLET PO SCH (19:43)
[2019-08-10] MEDS: TAMSULOSIN 0.4 MG CAP.ER.24H. PO SCH (19:43)
[2019-08-10] MEDS: risperiDONE 0.25 MG TABLET. PO SCH (19:43)
[2019-08-10] MEDS: diphenhydrAMINE HCL 25 MG CAPSULE PO SCH (19:44)
[2019-08-10] MEDS: MELATONIN 3 MG TABLET PO SCH (19:45)
--- NOTE | 2019-08-10 21:38 | PDOC ---
Exam Note: Ralph Note: Please also refer to the separate dictated note~for this date of service dictated separately.~Patient seen individually. Discussed the patient with Nursing staff reviewed the chart.~Reviewed interim history and current functioning. Reviewed vital signs,~Labs/ Radiology~and current medications noted below. Continue current treatment with the changes noted in the dictated addendum note Assessment: Vital Signs/I&O: Vital Signs Date Time Temp Pulse Resp B/P (MAP) Pulse Ox O2 Delivery O2 Flow Rate FiO2 08/10/19 19:45 63 116/70 08/10/19 15:57 98.2 20 92 Nasal Cannula 3.0 I & O 08/09/19 08/09/19 08/10/19 15:00 23:00 07:00 Intake Total 480 ml 240 ml 240 ml Balance 480 ml 240 ml 240 ml Current Medications: Meds: Current Medications Medications (Trade) Dose Ordered Sig/Andressa Route PRN Reason Start Time Stop Time Status Last Admin Dose Admin Melatonin 3 mg QHS PO 08/10/19 21:00 08/10/19 19:45 I have reviewed the current psychotropics carefully including drug interactions. Risk benefit ratio favors no change other than as noted in my dictated progress note. 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
[2019-08-11] MEDS: traZODone 50 MG TABLET. PO PRN (00:33)
[2019-08-11] MEDS: LORazepam 0.5 MG TABLET PO PRN (00:33)
--- NOTE | 2019-08-11 01:48 | PN ---
DATE: 08/08/2019 PSYCHIATRIC PROGRESS NOTE This late entry 08/08/2019 covers the elements not covered in my initial note. SUBJECTIVE: I met with the patient in the evening of 08/08/2019. The patient slept 6-3/4 hours previous night. He has been calm, cooperative, compliant with medications and assessments. He is on oxygen at 3 liters continuous and reportedly gets bored sitting in a wheelchair all day. Trying to encourage him to get involved in activities. REVIEW OF SYSTEMS: Shortness of breath, impaired ambulation in wheelchair. No CV, , GI, eye system symptoms on review. Reliability is poor. MENTAL STATUS EXAM: Oriented to himself and situation. Speech is low in rate and rhythm, low in volume. Abstraction fair, computation impaired, language function intact. Mood and affect somewhat withdrawn. LABORATORY DATA: Reviewed. IMPRESSION: Unchanged from initial note. PLAN: No change from initial note. DENVER RAY MD DR: LEYDI/bethany JOB#: [id number] / [id number]
--- NOTE | 2019-08-11 03:58 | PN ---
DATE: 08/09/2019 PSYCHIATRIC PROGRESS NOTE This late entry of 08/09 covers elements not covered in my initial note. SUBJECTIVE: I met with the patient in the evening. The patient slept just 1-1/2 hours previous night. He told the night nurse that he wanted to get into the garage and kill himself prior to admission. Staff will follow up on this. He denies active suicidal ideation when I question him on the evening of 08/09. REVIEW OF SYSTEMS: Some shortness of breath, remains on oxygen supplements; impaired ambulation, in wheelchair. No CV, GI, , ENT system symptoms on review. MENTAL STATUS EXAMINATION: Oriented to himself and situation. Speech is moderate latency, often responses monosyllabic, low in volume. Abstraction fair, computation impaired, language function intact. Mood and affect withdrawn. LABORATORY DATA: Reviewed. IMPRESSION: Unchanged from initial note. PLAN: No change from initial note. He did get p.r.n. Zyprexa at 2314 hours the previous evening. MAN Nany RAY MD DR: LEYDI/bethany JOB#: [id number] / [id number]
[2019-08-11 06:33] VITALS: BP 153/68
[2019-08-11 09:09] LABS: BASO % 0 % (0-3); EOS # 0.3 x10^3/uL (0.0-0.7); EOS % 3 % (0-3); HEMATOCRIT 29.1 % (39.0-53.0); HEMOGLOBIN 9.4 g/dL (13.0-17.5); LYMPH # 1.7 x10^3/uL (1.0-4.8); LYMPH % 17 % (24-48); MEAN CORPUSCULAR HEMOGLOBIN 32 pg (25-35); MEAN CORPUSCULAR HGB CONC 32 g/dL (31-37); MEAN CORPUSCULAR VOLUME 98 fL (79-100); MONO # 0.7 x10^3/uL (0.0-1.1); MONO % 7 % (0-9); NEUT # 7.2 x10^3uL (1.8-7.7); NEUT % 73 % (31-73); PLATELET COUNT 504 x10^3/uL (140-400); RED BLOOD COUNT 2.97 x10^6/uL (4.30-5.70); WHITE BLOOD COUNT 9.9 x10^3/uL (4.0-11.0)
[2019-08-11 09:17] LABS: ALBUMIN 2.7 g/dL (3.4-5.0); ALBUMIN/GLOBULIN RATIO 0.6 (1.0-1.7); CALCIUM 9.4 mg/dL (8.5-10.1); CREATININE 1.5 mg/dL (0.7-1.3); GFR 44.3; POTASSIUM 4.8 mmol/L (3.5-5.1); TOTAL BILIRUBIN 0.2 mg/dL (0.2-1.0); TOTAL PROTEIN 7.3 g/dL (6.4-8.2)
[2019-08-11] MEDS: ACETAMINOPHEN 325 MG TABLET PO SCH ×3 (09:20→17:30)
[2019-08-11] MEDS: glipiZIDE 5 MG TABLET PO SCH ×2 (09:20→13:10)
[2019-08-11] MEDS: metFORMIN 500 MG TABLET PO SCH ×3 (09:21→17:30)
[2019-08-11] MEDS: FERROUS SULFATE 325 MG TABLET. PO SCH ×4 (09:21→20:38)
[2019-08-11] MEDS: ASPIRIN 325 MG TABLET PO SCH ×2 (09:21→13:10)
[2019-08-11] MEDS: LINAGLIPTIN 5 MG TABLET PO SCH ×2 (09:21→13:10)
[2019-08-11] MEDS: FINASTERIDE 5 MG TABLET PO SCH ×2 (09:21→13:10)
[2019-08-11] MEDS: METOPROLOL TART IMMED RELEASE 50 MG TABLET PO SCH ×3 (09:21→20:39)
[2019-08-11] MEDS: MECLIZINE 12.5 MG TABLET. PO SCH ×3 (09:21→20:38)
[2019-08-11] MEDS: CYANOCOBALAMIN (VITAMIN B-12) 1,000 MCG TABLET. PO SCH ×2 (09:21→13:10)
[2019-08-11] MEDS: POLYETHYLENE GLYCOL 3350 17 GM PACKET. PO SCH ×2 (09:22→13:10)
[2019-08-11] MEDS: RIVASTIGMINE 9.5MG PATCH. TD SCH (09:22)
[2019-08-11] MEDS: NYSTATIN TOPICAL POWDER 15GM BOTTLE. TP SCH ×3 (09:23→20:53)
[2019-08-11 13:42] VITALS: BP 125/70
[2019-08-11] MEDS ORDERED: DEXTROSE 50% 25 GM / 50ML DISP.SYRIN. IV PRN (14:45)
[2019-08-11 16:53] VITALS: BP 137/79
[2019-08-11] MEDS: INSULIN LISPRO 300 UNITS/3 ML VIAL. SQ SCH (17:31)
--- NOTE | 2019-08-11 17:48 | EKG ---
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
[2019-08-11] MEDS: TAMSULOSIN 0.4 MG CAP.ER.24H. PO SCH (20:38)
[2019-08-11] MEDS: MELATONIN 3 MG TABLET PO SCH (20:38)
[2019-08-11] MEDS: diphenhydrAMINE HCL 25 MG CAPSULE PO SCH (20:38)
[2019-08-11] MEDS: risperiDONE 0.25 MG TABLET. PO SCH (20:39)
[2019-08-11] MEDS: ACETAMINOPHEN 500 MG TABLET PO SCH (20:39)
[2019-08-11] MEDS: MIRTAZAPINE 15 MG TABLET PO SCH (20:39)
[2019-08-11] MEDS ORDERED: INSULIN GLARGINE SYRINGE. SQ SCH (21:00)
--- NOTE | 2019-08-11 21:59 | PDOC ---
Exam Note: Ralph Note: Please also refer to the separate dictated note~for this date of service dictated separately.~Patient seen individually. Discussed the patient with Nursing staff reviewed the chart.~Reviewed interim history and current functioning. Reviewed vital signs,~Labs/ Radiology~and current medications noted below. Continue current treatment with the changes noted in the dictated addendum note Assessment: Vital Signs/I&O: Vital Signs Date Time Temp Pulse Resp B/P (MAP) Pulse Ox O2 Delivery O2 Flow Rate FiO2 08/11/19 20:53 90 137/79 08/11/19 16:53 98.3 16 99 08/11/19 13:42 Nasal Cannula 2.5 I & O 0 08/10/19 08/10/19 08/11/19 15:00 23:00 07:00 Intake Total 600 ml 480 ml 120 ml Output Total 1000 ml Balance 600 ml 480 ml -880 ml Labs: Laboratory Tests Test 08/11/19 08:55 08/11/19 13:49 08/11/19 16:53 08/11/19 19:11 White Blood Count 9.9 x10^3/uL (4.0-11.0) Red Blood Count 2.97 x10^6/uL (4.30-5.70) L Hemoglobin 9.4 g/dL (13.0-17.5) L Hematocrit 29.1 % (39.0-53.0) L Mean Corpuscular Volume 98 fL (79-100) Mean Corpuscular Hemoglobin 32 pg (25-35) Mean Corpuscular Hemoglobin Concent 32 g/dL (31-37) Red Cell Distribution Width 14.0 % (11.5-14.5) Platelet Count 504 x10^3/uL (140-400) H Neutrophils (%) (Auto) 73 % (31-73) Lymphocytes (%) (Auto) 17 % (24-48) L Monocytes (%) (Auto) 7 % (0-9) Eosinophils (%) (Auto) 3 % (0-3) Basophils (%) (Auto) 0 % (0-3) Neutrophils # (Auto) 7.2 x10^3uL (1.8-7.7) Lymphocytes # (Auto) 1.7 x10^3/uL (1.0-4.8) Monocytes # (Auto) 0.7 x10^3/uL (0.0-1.1) Eosinophils # (Auto) 0.3 x10^3/uL (0.0-0.7) Basophils # (Auto) 0.0 x10^3/uL (0.0-0.2) Sodium Level 140 mmol/L (136-145) Potassium Level 4.8 mmol/L (3.5-5.1) Chloride Level 104 mmol/L (98-107) Carbon Dioxide Level 27 mmol/L (21-32) Anion Gap 9 (6-14) Blood Urea Nitrogen 49 mg/dL (8-26) H Creatinine 1.5 mg/dL (0.7-1.3) H Estimated GFR (Cockcroft-Gault) 44.3 BUN/Creatinine Ratio 33 (6-20) H Glucose Level 329 mg/dL (70-99) H Calcium Level 9.4 mg/dL (8.5-10.1) Total Bilirubin 0.2 mg/dL (0.2-1.0) Aspartate Amino Transferase (AST) 11 U/L (15-37) L Alanine Aminotransferase (ALT) 14 U/L (16-63) L Alkaline Phosphatase 77 U/L (46-116) Total Protein 7.3 g/dL (6.4-8.2) Albumin 2.7 g/dL (3.4-5.0) L Albumin/Globulin Ratio 0.6 (1.0-1.7) L Glucose (Fingerstick) 339 mg/dL (70-99) H 316 mg/dL (70-99) H 354 mg/dL (70-99) H Current Medications: Meds: Current Medications Medications (Trade) Dose Ordered Sig/Andressa Route PRN Reason Start Time Stop Time Status Last Admin Dose Admin Insulin Human Lispro (HumaLOG) 0-5 UNITS TIDWMEALS SQ 08/11/19 17:00 08/11/19 17:32 Insulin Glargine (Lantus Syringe) 10 unit QHS SQ 08/11/19 21:00 08/11/19 20:53 I have reviewed the current psychotropics carefully including drug interactions. Risk benefit ratio favors no change other than as noted in my dictated progress note. 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
[2019-08-12] MEDS: LORazepam 0.5 MG TABLET PO PRN (01:56)
--- NOTE | 2019-08-12 02:32 | PN ---
DATE: 08/10/2019 PSYCHIATRIC PROGRESS NOTE This late entry 08/10/2019 covers elements not covered in my initial note. SUBJECTIVE: I met with the patient evening of 08/10/2019. The patient remains somewhat confused, occasionally pulls on his Foleys, wakes up at night and was given trazodone and Zyprexa, which helped with his sleep and we will add melatonin 3 mg at bedtime. REVIEW OF SYSTEMS: Shortness of breath on O2 supplements. No CV, GI, , ENT system symptoms on review. Reliability varies. MENTAL STATUS EXAM: Oriented to himself and situation. Speech is coherent, abstraction fair, computation impaired, language function intact, attention span short. Mood and affect remain somewhat anxious, at times labile. LABORATORY DATA: Reviewed. IMPRESSION: Unchanged from initial note. PLAN: Add melatonin 3 mg at bedtime. Maintain rest of the psychotropics per initial note including Exelon patch 9.5 mg a day, Risperdal 0.25 mg at bedtime, Remeron 15 mg at bedtime, Ativan p.r.n., Zyprexa and trazodone p.r.n. MAN Nany RAY MD DR: LEYDI/bethany JOB#: [id number] / [id number]
[2019-08-12 06:35] VITALS: BP 107/63
[2019-08-12] MEDS: ACETAMINOPHEN 325 MG TABLET PO SCH ×2 (07:52→18:09)
[2019-08-12] MEDS: RIVASTIGMINE 9.5MG PATCH. TD SCH (07:52)
[2019-08-12] MEDS: FERROUS SULFATE 325 MG TABLET. PO SCH ×3 (07:53→19:56)
[2019-08-12] MEDS: LINAGLIPTIN 5 MG TABLET PO SCH (07:53)
[2019-08-12] MEDS: FINASTERIDE 5 MG TABLET PO SCH (07:53)
[2019-08-12] MEDS: ASPIRIN 325 MG TABLET PO SCH (07:53)
[2019-08-12] MEDS: POLYETHYLENE GLYCOL 3350 17 GM PACKET. PO SCH (07:53)
[2019-08-12] MEDS: METOPROLOL TART IMMED RELEASE 50 MG TABLET PO SCH ×2 (07:53→19:57)
[2019-08-12] MEDS: INSULIN LISPRO 300 UNITS/3 ML VIAL. SQ SCH ×3 (07:54→18:11)
[2019-08-12] MEDS: MECLIZINE 12.5 MG TABLET. PO SCH ×2 (07:54→19:56)
[2019-08-12] MEDS: CYANOCOBALAMIN (VITAMIN B-12) 1,000 MCG TABLET. PO SCH (07:54)
[2019-08-12] MEDS: NYSTATIN TOPICAL POWDER 15GM BOTTLE. TP SCH ×2 (07:58→20:14)
[2019-08-12 17:03] VITALS: BP 99/56
[2019-08-12] MEDS: MELATONIN 3 MG TABLET PO SCH (19:55)
[2019-08-12] MEDS: diphenhydrAMINE HCL 25 MG CAPSULE PO SCH (19:56)
[2019-08-12] MEDS: TAMSULOSIN 0.4 MG CAP.ER.24H. PO SCH (19:56)
[2019-08-12] MEDS: risperiDONE 0.25 MG TABLET. PO SCH (19:58)
[2019-08-12] MEDS: MIRTAZAPINE 15 MG TABLET PO SCH (19:58)
[2019-08-12] MEDS: ACETAMINOPHEN 500 MG TABLET PO SCH (19:58)
[2019-08-12] MEDS: SERTRALINE 25 MG TABLET. PO SCH (19:59)
[2019-08-12] MEDS: INSULIN GLARGINE SYRINGE. SQ SCH (21:05)
--- NOTE | 2019-08-12 21:44 | PDOC ---
Exam Note: Ralph Note: Please also refer to the separate dictated note~for this date of service dictated separately.~Patient seen individually. Discussed the patient with Nursing staff reviewed the chart.~Reviewed interim history and current functioning. Reviewed vital signs,~Labs/ Radiology~and current medications noted below. Continue current treatment with the changes noted in the dictated addendum note Assessment: Vital Signs/I&O: Vital Signs Date Time Temp Pulse Resp B/P (MAP) Pulse Ox O2 Delivery O2 Flow Rate FiO2 08/12/19 19:57 87 99/56 08/12/19 17:29 97 08/12/19 17:03 98.0 16 08/11/19 13:42 Nasal Cannula 2.5 I & O 08/11/19 08/11/19 08/12/19 15:00 23:00 07:00 Intake Total 480 ml 360 ml Output Total 850 ml Balance 480 ml -490 ml Labs: Laboratory Tests Test 08/12/19 07:16 08/12/19 12:00 08/12/19 17:06 08/12/19 19:24 Glucose (Fingerstick) 129 mg/dL (70-99) H 366 mg/dL (70-99) H 384 mg/dL (70-99) H 406 mg/dL (70-99) H Current Medications: Meds: Current Medications Medications (Trade) Dose Ordered Sig/Andressa Route PRN Reason Start Time Stop Time Status Last Admin Dose Admin Insulin Glargine (Lantus Syringe) 20 unit QHS SQ 08/12/19 21:00 08/12/19 21:05 Sertraline HCl (Zoloft) 50 mg QHS PO 08/12/19 21:00 08/12/19 19:59 I have reviewed the current psychotropics carefully including drug interactions. Risk benefit ratio favors no change other than as noted in my dictated progress note. 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
--- NOTE | 2019-08-13 00:28 | PN ---
DATE: 08/11/2019 PSYCHIATRIC PROGRESS NOTE This late entry 08/11/2019 covers elements not covered in my initial note. SUBJECTIVE: I met with the patient in the evening of 08/11/2019. The patient slept 3-3/4 hours previous night. He has been restless, pulling on his oxygen tube and pulling it out. He was drowsy, ate nothing for lunch. BUN elevated. WBCs are better. RBCs, hemoglobin and hematocrit are low. Irregular heart rate. We will defer all medical issues to Dr. Cheek. REVIEW OF SYSTEMS: Positive for shortness of breath on O2 supplements, impaired ambulation in wheelchair. No CV, GI, , ENT system symptoms on review. Reliability poor. MENTAL STATUS EXAM: Oriented to himself. Insight, judgment, recent memory is impaired. At times, he is much more oriented than other times. Abstraction fair, computation impaired, language function intact, attention span short. Mood and affect, still somewhat anxious, labile, restless. LABORATORY DATA: Reviewed. IMPRESSION: Unchanged from initial note. PLAN: No change from initial note. MAN Nany RAY MD DR: LEYDI/bethany JOB#: [id number] / [id number]
[2019-08-13 06:26] VITALS: BP 139/66
[2019-08-13] MEDS: ACETAMINOPHEN 325 MG TABLET PO SCH ×2 (08:26→17:08)
[2019-08-13] MEDS: ASPIRIN 325 MG TABLET PO SCH (08:26)
[2019-08-13] MEDS: LINAGLIPTIN 5 MG TABLET PO SCH (08:26)
[2019-08-13] MEDS: FINASTERIDE 5 MG TABLET PO SCH (08:26)
[2019-08-13] MEDS: POLYETHYLENE GLYCOL 3350 17 GM PACKET. PO SCH (08:27)
[2019-08-13] MEDS: METOPROLOL TART IMMED RELEASE 50 MG TABLET PO SCH ×2 (08:27→19:56)
[2019-08-13] MEDS: FERROUS SULFATE 325 MG TABLET. PO SCH ×3 (08:27→19:55)
[2019-08-13] MEDS: CYANOCOBALAMIN (VITAMIN B-12) 1,000 MCG TABLET. PO SCH (08:27)
[2019-08-13] MEDS: RIVASTIGMINE 9.5MG PATCH. TD SCH (08:30)
[2019-08-13] MEDS: MECLIZINE 12.5 MG TABLET. PO SCH ×2 (08:56→19:55)
[2019-08-13] MEDS: INSULIN LISPRO 300 UNITS/3 ML VIAL. SQ SCH ×3 (09:30→17:00)
[2019-08-13] MEDS: NYSTATIN TOPICAL POWDER 15GM BOTTLE. TP SCH ×2 (09:30→19:56)
[2019-08-13 15:40] VITALS: BP 141/66
[2019-08-13] MEDS: TAMSULOSIN 0.4 MG CAP.ER.24H. PO SCH (19:55)
[2019-08-13] MEDS: MELATONIN 3 MG TABLET PO SCH (19:55)
[2019-08-13] MEDS: diphenhydrAMINE HCL 25 MG CAPSULE PO SCH (19:55)
[2019-08-13] MEDS: risperiDONE 0.25 MG TABLET. PO SCH (19:56)
[2019-08-13] MEDS: MIRTAZAPINE 15 MG TABLET PO SCH (19:56)
[2019-08-13] MEDS: SERTRALINE 25 MG TABLET. PO SCH (19:56)
[2019-08-13] MEDS: ACETAMINOPHEN 500 MG TABLET PO SCH (19:56)
[2019-08-13] MEDS: INSULIN GLARGINE SYRINGE. SQ SCH (20:38)
--- NOTE | 2019-08-13 21:51 | PDOC ---
Exam Note: Ralph Note: Please also refer to the separate dictated note~for this date of service dictated separately.~Patient seen individually. Discussed the patient with Nursing staff reviewed the chart.~Reviewed interim history and current functioning. Reviewed vital signs,~Labs/ Radiology~and current medications noted below. Continue current treatment with the changes noted in the dictated addendum note Assessment: Vital Signs/I&O: Vital Signs Date Time Temp Pulse Resp B/P (MAP) Pulse Ox O2 Delivery O2 Flow Rate FiO2 08/13/19 19:56 76 141/66 08/13/19 15:40 98.9 16 99 2.0 08/11/19 13:42 Nasal Cannula I & O 0 08/12/19 08/12/19 08/13/19 15:00 23:00 07:00 Intake Total 840 ml 480 ml 240 ml Balance 840 ml 480 ml 240 ml Labs: Laboratory Tests Test 08/13/19 07:28 08/13/19 11:31 08/13/19 16:32 08/13/19 19:08 Glucose (Fingerstick) 184 mg/dL (70-99) H 332 mg/dL (70-99) H 149 mg/dL (70-99) H 262 mg/dL (70-99) H Current Medications: Meds: Current Medications Medications (Trade) Dose Ordered Sig/Andressa Route PRN Reason Start Time Stop Time Status Last Admin Dose Admin Insulin Human Lispro (HumaLOG) 0-5 UNITS TIDWMEALS SQ 08/13/19 08:00 08/13/19 12:38 I have reviewed the current psychotropics carefully including drug interactions. Risk benefit ratio favors no change other than as noted in my dictated progress note. 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
[2019-08-14] MEDS: LORazepam 0.5 MG TABLET PO PRN (00:06)
[2019-08-14] MEDS: traZODone 50 MG TABLET. PO PRN ×2 (00:06→19:40)
[2019-08-14] MEDS: INSULIN GLARGINE SYRINGE. SQ SCH ×2 (02:45→20:34)
[2019-08-14 05:04] VITALS: BP 150/68
--- NOTE | 2019-08-14 07:25 | EKG ---
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
[2019-08-14] MEDS: LINAGLIPTIN 5 MG TABLET PO SCH (07:45)
[2019-08-14] MEDS: POLYETHYLENE GLYCOL 3350 17 GM PACKET. PO SCH (07:45)
[2019-08-14] MEDS: RIVASTIGMINE 9.5MG PATCH. TD SCH (07:45)
[2019-08-14] MEDS: ACETAMINOPHEN 325 MG TABLET PO SCH ×2 (07:45→17:00)
[2019-08-14] MEDS: FINASTERIDE 5 MG TABLET PO SCH (07:46)
[2019-08-14] MEDS: FERROUS SULFATE 325 MG TABLET. PO SCH ×3 (07:46→19:38)
[2019-08-14] MEDS: MECLIZINE 12.5 MG TABLET. PO SCH ×2 (07:46→19:38)
[2019-08-14] MEDS: METOPROLOL TART IMMED RELEASE 50 MG TABLET PO SCH ×2 (07:46→19:39)
[2019-08-14] MEDS: ASPIRIN 325 MG TABLET PO SCH (07:46)
[2019-08-14] MEDS: CYANOCOBALAMIN (VITAMIN B-12) 1,000 MCG TABLET. PO SCH (07:46)
[2019-08-14] MEDS: NYSTATIN TOPICAL POWDER 15GM BOTTLE. TP SCH ×2 (07:48→20:34)
[2019-08-14] MEDS: INSULIN LISPRO 300 UNITS/3 ML VIAL. SQ SCH ×3 (07:50→17:00)
[2019-08-14 16:24] VITALS: BP 118/72
[2019-08-14] MEDS: MELATONIN 3 MG TABLET PO SCH (19:38)
[2019-08-14] MEDS: diphenhydrAMINE HCL 25 MG CAPSULE PO SCH (19:38)
[2019-08-14] MEDS: MIRTAZAPINE 15 MG TABLET PO SCH (19:39)
[2019-08-14] MEDS: risperiDONE 0.25 MG TABLET. PO SCH (19:39)
[2019-08-14] MEDS: ACETAMINOPHEN 500 MG TABLET PO SCH (19:39)
[2019-08-14] MEDS: TAMSULOSIN 0.4 MG CAP.ER.24H. PO SCH (19:39)
[2019-08-14] MEDS: SERTRALINE 25 MG TABLET. PO SCH (19:40)
--- NOTE | 2019-08-14 21:42 | PDOC ---
Exam Note: Ralph Note: Please also refer to the separate dictated note~for this date of service dictated separately.~Patient seen individually. Discussed the patient with Nursing staff reviewed the chart.~Reviewed interim history and current functioning. Reviewed vital signs,~Labs/ Radiology~and current medications noted below. Continue current treatment with the changes noted in the dictated addendum note Assessment: Vital Signs/I&O: Vital Signs Date Time Temp Pulse Resp B/P (MAP) Pulse Ox O2 Delivery O2 Flow Rate FiO2 08/14/19 19:39 78 118/72 08/14/19 16:24 98.7 16 98 08/14/19 05:04 2.0 08/11/19 13:42 Nasal Cannula I & O 08/13/19 08/13/19 08/14/19 15:00 23:00 07:00 Intake Total 1080 ml 480 ml 120 ml Output Total 350 ml Balance 1080 ml 130 ml 120 ml Labs: Laboratory Tests Test 08/14/19 00:34 08/14/19 02:46 08/14/19 07:22 08/14/19 12:00 Glucose (Fingerstick) 299 mg/dL (70-99) H 275 mg/dL (70-99) H 175 mg/dL (70-99) H 342 mg/dL (70-99) H Test 08/14/19 17:18 08/14/19 19:20 Glucose (Fingerstick) 187 mg/dL (70-99) H 179 mg/dL (70-99) H Current Medications: I have reviewed the current psychotropics carefully including drug interactions. Risk benefit ratio favors no change other than as noted in my dictated progress note. 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
--- NOTE | 2019-08-14 22:27 | PN ---
DATE: 08/13/2019 PSYCHIATRIC PROGRESS NOTE This late entry 08/13/2019 covers the elements not covered in my initial note. SUBJECTIVE: I met with the patient in the evening. The patient was also staffed at a treatment team meeting with the entire team in the morning. The patient is alert, oriented x 1. Appetite 75-100%, slept 6-1/4 hours. On the mini mental status exam, he scores 12/30. He is compliant with medications and cares and shower, somewhat drowsy and family is looking at placement in [place], [place]. Grandson is involved with his care. REVIEW OF SYSTEMS: No CV, , eye, ENT system symptoms on review. Reliability is poor. He does have continuous oxygen in place. MENTAL STATUS EXAM: Oriented to himself. Insight, judgment, recent and remote memory, attention, concentration, fund of knowledge poor, consistent with his diagnosis mentioned in my initial note. PLAN: No change from initial note. DENVER RAY MD DR: LEYDI/bethany JOB#: [id number] / [id number]
--- NOTE | 2019-08-15 00:41 | PN ---
DATE: 08/12/2019 PSYCHIATRIC PROGRESS NOTE This late entry 08/12/2019 covers elements not covered in my initial note. SUBJECTIVE: I met with the patient in the evening. Per GAURAV Bedolla, the patient slept 3-3/4 hours previous night. He has been little better during the day on 08/12/2019, more awake, alert. Compliant with medications. Does appear depressed and is confused. REVIEW OF SYSTEMS: Shortness of breath, on oxygen supplements, impaired ambulation in wheelchair. No CV, GI, , eye system symptoms on review. MENTAL STATUS EXAM: Oriented to himself. Insight, judgment, recent and remote memory, attention, concentration, fund of knowledge poor, consistent with his diagnosis mentioned in my initial note. IMPRESSION: Major neurocognitive disorder, Alzheimer, vascular with delusion, depression, behavioral disturbance; anxiety disorder, unspecified; impulse control disorder, unspecified. PLAN: Continue current psychotropics from initial note. Start Zoloft 50 mg a day. Rest unchanged for now. MAN Nany RAY MD DR: LEYDI/bethany JOB#: [id number] / [id number]
[2019-08-15 05:09] VITALS: BP 112/69
[2019-08-15] MEDS: INSULIN LISPRO 300 UNITS/3 ML VIAL. SQ SCH ×3 (08:00→17:00)
[2019-08-15] MEDS: LINAGLIPTIN 5 MG TABLET PO SCH (08:10)
[2019-08-15] MEDS: CHOLECALCIFEROL (VITAMIN D3) 50,000 UNIT CAPSULE PO SCH (08:10)
[2019-08-15] MEDS: MECLIZINE 12.5 MG TABLET. PO SCH ×2 (08:10→20:27)
[2019-08-15] MEDS: FERROUS SULFATE 325 MG TABLET. PO SCH ×3 (08:10→20:26)
[2019-08-15] MEDS: ACETAMINOPHEN 325 MG TABLET PO SCH ×2 (08:10→17:00)
[2019-08-15] MEDS: CYANOCOBALAMIN (VITAMIN B-12) 1,000 MCG TABLET. PO SCH (08:10)
[2019-08-15] MEDS: POLYETHYLENE GLYCOL 3350 17 GM PACKET. PO SCH (08:11)
[2019-08-15] MEDS: FINASTERIDE 5 MG TABLET PO SCH (08:11)
[2019-08-15] MEDS: RIVASTIGMINE 9.5MG PATCH. TD SCH (08:11)
[2019-08-15] MEDS: ASPIRIN 325 MG TABLET PO SCH (08:11)
[2019-08-15] MEDS: METOPROLOL TART IMMED RELEASE 50 MG TABLET PO SCH ×2 (08:11→20:26)
[2019-08-15] MEDS: SERTRALINE 25 MG TABLET. PO SCH (08:15)
[2019-08-15] MEDS: NYSTATIN TOPICAL POWDER 15GM BOTTLE. TP SCH ×2 (08:15→20:27)
[2019-08-15 15:28] VITALS: BP 103/52
[2019-08-15 20:25] VITALS: BP 126/67
[2019-08-15] MEDS: MIRTAZAPINE 15 MG TABLET PO SCH (20:26)
[2019-08-15] MEDS: diphenhydrAMINE HCL 25 MG CAPSULE PO SCH (20:27)
[2019-08-15] MEDS: MELATONIN 3 MG TABLET PO SCH (20:27)
[2019-08-15] MEDS: TAMSULOSIN 0.4 MG CAP.ER.24H. PO SCH (20:27)
[2019-08-15] MEDS: ACETAMINOPHEN 500 MG TABLET PO SCH (20:27)
[2019-08-15] MEDS: risperiDONE 0.25 MG TABLET. PO SCH (20:27)
[2019-08-15] MEDS: INSULIN GLARGINE SYRINGE. SQ SCH (20:29)
--- NOTE | 2019-08-15 22:14 | PDOC ---
Exam Note: Ralph Note: Please also refer to the separate dictated note~for this date of service dictated separately.~Patient seen individually. Discussed the patient with Nursing staff reviewed the chart.~Reviewed interim history and current functioning. Reviewed vital signs,~Labs/ Radiology~and current medications noted below. Continue current treatment with the changes noted in the dictated addendum note Assessment: Vital Signs/I&O: Vital Signs Date Time Temp Pulse Resp B/P (MAP) Pulse Ox O2 Delivery O2 Flow Rate FiO2 08/15/19 20:26 79 126/67 08/15/19 15:28 97.5 16 99 08/14/19 05:04 2.0 08/11/19 13:42 Nasal Cannula I & O 08/14/19 08/14/19 08/15/19 15:00 23:00 07:00 Intake Total 1200 ml 480 ml 200 ml Balance 1200 ml 480 ml 200 ml Labs: Laboratory Tests Test 08/15/19 07:20 08/15/19 12:14 08/15/19 17:06 08/15/19 19:15 Glucose (Fingerstick) 111 mg/dL (70-99) H 329 mg/dL (70-99) H 144 mg/dL (70-99) H 223 mg/dL (70-99) H Current Medications: Meds: Current Medications Medications (Trade) Dose Ordered Sig/Andressa Route PRN Reason Start Time Stop Time Status Last Admin Dose Admin Sertraline HCl (Zoloft) 75 mg DAILY PO 08/15/19 09:00 08/15/19 08:15 I have reviewed the current psychotropics carefully including drug interactions. Risk benefit ratio favors no change other than as noted in my dictated progress note. 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
[2019-08-16] MEDS: traZODone 50 MG TABLET. PO PRN (00:50)
[2019-08-16] MEDS: LORazepam 0.5 MG TABLET PO PRN (00:50)
[2019-08-16 05:38] VITALS: BP 127/68
[2019-08-16 07:07] LABS: BASO % 0 % (0-3); EOS # 0.3 x10^3/uL (0.0-0.7); EOS % 3 % (0-3); HEMATOCRIT 30.8 % (39.0-53.0); HEMOGLOBIN 9.7 g/dL (13.0-17.5); LYMPH # 2.6 x10^3/uL (1.0-4.8); LYMPH % 21 % (24-48); MEAN CORPUSCULAR HEMOGLOBIN 31 pg (25-35); MEAN CORPUSCULAR HGB CONC 32 g/dL (31-37); MEAN CORPUSCULAR VOLUME 98 fL (79-100); MONO # 1.3 x10^3/uL (0.0-1.1); MONO % 11 % (0-9); NEUT # 8.2 x10^3uL (1.8-7.7); NEUT % 66 % (31-73); PLATELET COUNT 433 x10^3/uL (140-400); RED BLOOD COUNT 3.13 x10^6/uL (4.30-5.70); RED CELL DISTRIBUTION WIDTH 14.4 % (11.5-14.5); WHITE BLOOD COUNT 12.4 x10^3/uL (4.0-11.0)
[2019-08-16 07:16] LABS: ALBUMIN 2.7 g/dL (3.4-5.0); ALBUMIN/GLOBULIN RATIO 0.7 (1.0-1.7); CALCIUM 9.3 mg/dL (8.5-10.1); CREATININE 1.5 mg/dL (0.7-1.3); GFR 44.3; POTASSIUM 4.7 mmol/L (3.5-5.1); TOTAL BILIRUBIN 0.2 mg/dL (0.2-1.0); TOTAL PROTEIN 6.8 g/dL (6.4-8.2)
[2019-08-16] MEDS: ASPIRIN 325 MG TABLET PO SCH (07:59)
[2019-08-16] MEDS: ACETAMINOPHEN 325 MG TABLET PO SCH ×2 (07:59→17:00)
[2019-08-16] MEDS: METOPROLOL TART IMMED RELEASE 50 MG TABLET PO SCH ×2 (07:59→20:38)
[2019-08-16] MEDS: POLYETHYLENE GLYCOL 3350 17 GM PACKET. PO SCH (07:59)
[2019-08-16] MEDS: FERROUS SULFATE 325 MG TABLET. PO SCH ×3 (07:59→20:14)
[2019-08-16] MEDS: LINAGLIPTIN 5 MG TABLET PO SCH (07:59)
[2019-08-16] MEDS: CYANOCOBALAMIN (VITAMIN B-12) 1,000 MCG TABLET. PO SCH (07:59)
[2019-08-16] MEDS: MECLIZINE 12.5 MG TABLET. PO SCH ×2 (08:00→20:14)
[2019-08-16] MEDS: SERTRALINE 25 MG TABLET. PO SCH (08:00)
[2019-08-16] MEDS: INSULIN LISPRO 300 UNITS/3 ML VIAL. SQ SCH ×3 (08:00→17:00)
[2019-08-16] MEDS: FINASTERIDE 5 MG TABLET PO SCH (08:00)
[2019-08-16] MEDS: RIVASTIGMINE 9.5MG PATCH. TD SCH (08:00)
[2019-08-16] MEDS: NYSTATIN TOPICAL POWDER 15GM BOTTLE. TP SCH ×2 (08:02→20:14)
--- NOTE | 2019-08-16 08:12 | PN ---
DATE: 08/14/2019 PSYCHIATRIC PROGRESS NOTE This late entry 08/14/2019 covers elements not covered in my initial note. SUBJECTIVE: I met with the patient evening of 08/14/2019. The patient slept 7-1/4 hours previous night. Overall, he has had a good day. He did receive Ativan and trazodone at night. REVIEW OF SYSTEMS: No CV, , PULMONARY, EYE, ENT system symptoms on review. Reliability poor. MENTAL STATUS EXAM: Oriented to himself. Insight, judgment, recent and remote memory, attention, concentration, fund of knowledge poor, consistent with his diagnosis mentioned in my initial note. LABORATORY DATA: Reviewed. PLAN: Continue current psychotropics. Adjust further as clinically indicated. MAN Nany RAY MD DR: LEYDI/bethany JOB#: [id number] / [id number]
[2019-08-16] MEDS ORDERED: FLU VAX QS 2019-20 (36MOS+)/PF 0.5 ML SYRINGE. VAX IM ONE (09:00)
--- NOTE | 2019-08-16 14:54 | RAD ---
CHEST AP ONLY Clinical History: Technique: AP view of the chest was obtained at 08/16/2019 1:00 PM. Comparison: August 07, 2019. Findings: The heart is mildly enlarged. The aorta is tortuous. The pulmonary vessels appear normal. The lungs are clear. Impression: No acute findings. Electronically signed by: Davide Jeronimo III, MD (08/16/2019 2:51 PM) [facility] [place]
[2019-08-16 15:59] VITALS: BP 107/62
[2019-08-16 19:14] LABS: BILIRUBIN,URINE NEG (NEG); CLARITY,URINE HAZY; COLOR,URINE STRAW; GLUCOSE,URINE >=1000 mg/dL (NEG); NITRITE,URINE NEG (NEG); UROBILINOGEN,URINE 0.2 mg/dL (0.2 mg/dL)
[2019-08-16 19:15] LABS: BACTERIA,URINE 0 /HPF (0-FEW); SQUAMOUS EPITHELIAL CELL,UR OCC /LPF
[2019-08-16] MEDS: ACETAMINOPHEN 500 MG TABLET PO SCH (20:14)
[2019-08-16] MEDS: MELATONIN 3 MG TABLET PO SCH (20:14)
[2019-08-16] MEDS: MIRTAZAPINE 15 MG TABLET PO SCH (20:14)
[2019-08-16] MEDS: risperiDONE 0.25 MG TABLET. PO SCH (20:14)
[2019-08-16] MEDS: diphenhydrAMINE HCL 25 MG CAPSULE PO SCH (20:14)
[2019-08-16] MEDS: TAMSULOSIN 0.4 MG CAP.ER.24H. PO SCH (20:14)
[2019-08-16 20:36] VITALS: BP 125/61
[2019-08-16] MEDS: INSULIN GLARGINE SYRINGE. SQ SCH (20:41)
--- NOTE | 2019-08-16 21:28 | PDOC ---
Exam Note: Ralph Note: Please also refer to the separate dictated note~for this date of service dictated separately.~Patient seen individually. Discussed the patient with Nursing staff reviewed the chart.~Reviewed interim history and current functioning. Reviewed vital signs,~Labs/ Radiology~and current medications noted below. Continue current treatment with the changes noted in the dictated addendum note Assessment: Vital Signs/I&O: Vital Signs Date Time Temp Pulse Resp B/P (MAP) Pulse Ox O2 Delivery O2 Flow Rate FiO2 08/16/19 20:38 78 125/61 08/16/19 20:36 20 99 2.0 08/16/19 15:59 97.5 08/11/19 13:42 Nasal Cannula I & O 08/15/19 08/15/19 08/16/19 15:00 23:00 07:00 Intake Total 840 ml 240 ml 120 ml Balance 840 ml 240 ml 120 ml Labs: Laboratory Tests Test 08/16/19 06:39 08/16/19 07:31 08/16/19 11:24 08/16/19 16:35 White Blood Count 12.4 x10^3/uL (4.0-11.0) H Red Blood Count 3.13 x10^6/uL (4.30-5.70) L Hemoglobin 9.7 g/dL (13.0-17.5) L Hematocrit 30.8 % (39.0-53.0) L Mean Corpuscular Volume 98 fL (79-100) Mean Corpuscular Hemoglobin 31 pg (25-35) Mean Corpuscular Hemoglobin Concent 32 g/dL (31-37) Red Cell Distribution Width 14.4 % (11.5-14.5) Platelet Count 433 x10^3/uL (140-400) H Neutrophils (%) (Auto) 66 % (31-73) Lymphocytes (%) (Auto) 21 % (24-48) L Monocytes (%) (Auto) 11 % (0-9) H Eosinophils (%) (Auto) 3 % (0-3) Basophils (%) (Auto) 0 % (0-3) Neutrophils # (Auto) 8.2 x10^3uL (1.8-7.7) H Lymphocytes # (Auto) 2.6 x10^3/uL (1.0-4.8) Monocytes # (Auto) 1.3 x10^3/uL (0.0-1.1) H Eosinophils # (Auto) 0.3 x10^3/uL (0.0-0.7) Basophils # (Auto) 0.0 x10^3/uL (0.0-0.2) Sodium Level 141 mmol/L (136-145) Potassium Level 4.7 mmol/L (3.5-5.1) Chloride Level 105 mmol/L (98-107) Carbon Dioxide Level 25 mmol/L (21-32) Anion Gap 11 (6-14) Blood Urea Nitrogen 47 mg/dL (8-26) H Creatinine 1.5 mg/dL (0.7-1.3) H Estimated GFR (Cockcroft-Gault) 44.3 BUN/Creatinine Ratio 31 (6-20) H Glucose Level 82 mg/dL (70-99) Calcium Level 9.3 mg/dL (8.5-10.1) Total Bilirubin 0.2 mg/dL (0.2-1.0) Aspartate Amino Transferase (AST) 9 U/L (15-37) L Alanine Aminotransferase (ALT) 11 U/L (16-63) L Alkaline Phosphatase 91 U/L (46-116) Total Protein 6.8 g/dL (6.4-8.2) Albumin 2.7 g/dL (3.4-5.0) L Albumin/Globulin Ratio 0.7 (1.0-1.7) L Glucose (Fingerstick) 78 mg/dL (70-99) 342 mg/dL (70-99) H 297 mg/dL (70-99) H Test 08/16/19 17:55 08/16/19 19:16 Urine Collection Type U cath Urine Color Straw Urine Clarity Hazy Urine pH 5.5 Urine Specific Davy 1.015 Urine Protein Neg (NEG-TRACE) Urine Glucose (UA) >=1000 mg/dL (NEG) Urine Ketones (Stick) Neg mg/dL (NEG) Urine Blood Mod (NEG) Urine Nitrite Neg (NEG) Urine Bilirubin Neg (NEG) Urine Urobilinogen Dipstick 0.2 mg/dL (0.2 mg/dL) Urine Leukocyte Esterase Trace (NEG) Urine RBC 1-2 /HPF (0-2) Urine WBC 5-10 /HPF (0-4) Urine Squamous Epithelial Cells Occ /LPF Urine Bacteria 0 /HPF (0-FEW) Glucose (Fingerstick) 305 mg/dL (70-99) H Current Medications: Meds: Current Medications Medications (Trade) Dose Ordered Sig/Andressa Route PRN Reason Start Time Stop Time Status Last Admin Dose Admin Influenza Virus Vaccine Quadrival (Afluria Quad 2018- (3yr Up) Syringe) 0.5 ml ONCE ONCE VAX IM 08/16/19 09:00 08/16/19 09:01 DC 08/16/19 09:00 I have reviewed the current psychotropics carefully including drug interactions. Risk benefit ratio favors no change other than as noted in my dictated progress note. 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
[2019-08-17] MEDS: LORazepam 0.5 MG TABLET PO PRN ×2 (01:47→23:14)
[2019-08-17] MEDS: traZODone 50 MG TABLET. PO PRN ×2 (01:47→23:14)
[2019-08-17 05:18] VITALS: BP 129/64
[2019-08-17] MEDS: FINASTERIDE 5 MG TABLET PO SCH (09:10)
[2019-08-17] MEDS: RIVASTIGMINE 9.5MG PATCH. TD SCH (09:10)
[2019-08-17] MEDS: MECLIZINE 12.5 MG TABLET. PO SCH ×2 (09:10→19:42)
[2019-08-17] MEDS: ACETAMINOPHEN 325 MG TABLET PO SCH ×2 (09:10→17:08)
[2019-08-17] MEDS: LINAGLIPTIN 5 MG TABLET PO SCH (09:11)
[2019-08-17] MEDS: FERROUS SULFATE 325 MG TABLET. PO SCH ×3 (09:11→19:43)
[2019-08-17] MEDS: METOPROLOL TART IMMED RELEASE 50 MG TABLET PO SCH ×2 (09:12→19:43)
[2019-08-17] MEDS: SERTRALINE 25 MG TABLET. PO SCH (09:12)
[2019-08-17] MEDS: POLYETHYLENE GLYCOL 3350 17 GM PACKET. PO SCH (09:12)
[2019-08-17] MEDS: NYSTATIN TOPICAL POWDER 15GM BOTTLE. TP SCH ×2 (09:12→19:44)
[2019-08-17] MEDS: ASPIRIN 325 MG TABLET PO SCH (09:12)
[2019-08-17] MEDS: CYANOCOBALAMIN (VITAMIN B-12) 1,000 MCG TABLET. PO SCH (09:12)
[2019-08-17] MEDS: INSULIN LISPRO 300 UNITS/3 ML VIAL. SQ SCH ×3 (09:23→17:09)
[2019-08-17 15:58] VITALS: BP 124/65
[2019-08-17] MEDS: diphenhydrAMINE HCL 25 MG CAPSULE PO SCH (19:42)
[2019-08-17] MEDS: MELATONIN 3 MG TABLET PO SCH (19:42)
[2019-08-17] MEDS: ACETAMINOPHEN 500 MG TABLET PO SCH (19:43)
[2019-08-17] MEDS: MIRTAZAPINE 15 MG TABLET PO SCH (19:43)
[2019-08-17] MEDS: risperiDONE 0.25 MG TABLET. PO SCH (19:43)
[2019-08-17] MEDS: TAMSULOSIN 0.4 MG CAP.ER.24H. PO SCH (19:43)
[2019-08-17] MEDS: OXYBUTYNIN CHLORIDE 5 MG TABLET PO SCH (19:45)
[2019-08-17] MEDS: INSULIN GLARGINE SYRINGE. SQ SCH (19:46)
--- NOTE | 2019-08-17 21:39 | PDOC ---
Exam Note: Ralph Note: Please also refer to the separate dictated note~for this date of service dictated separately.~Patient seen individually. Discussed the patient with Nursing staff reviewed the chart.~Reviewed interim history and current functioning. Reviewed vital signs,~Labs/ Radiology~and current medications noted below. Continue current treatment with the changes noted in the dictated addendum note Assessment: Vital Signs/I&O: Vital Signs Date Time Temp Pulse Resp B/P (MAP) Pulse Ox O2 Delivery O2 Flow Rate FiO2 08/17/19 19:43 74 124/65 08/17/19 15:58 97.5 16 98 2.0 08/11/19 13:42 Nasal Cannula I & O 0 08/16/19 08/16/19 08/17/19 15:00 23:00 07:00 Intake Total 1080 ml 220 ml Balance 1080 ml 220 ml Labs: Laboratory Tests Test 08/17/19 07:42 08/17/19 11:31 08/17/19 16:58 08/17/19 19:09 Glucose (Fingerstick) 172 mg/dL (70-99) H 262 mg/dL (70-99) H 242 mg/dL (70-99) H 230 mg/dL (70-99) H Current Medications: Meds: Current Medications Medications (Trade) Dose Ordered Sig/Andressa Route PRN Reason Start Time Stop Time Status Last Admin Dose Admin Oxybutynin Chloride (Ditropan) 5 mg BID PO 08/17/19 21:00 08/17/19 19:45 I have reviewed the current psychotropics carefully including drug interactions. Risk benefit ratio favors no change other than as noted in my dictated progress note. 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
--- NOTE | 2019-08-17 23:41 | PN ---
DATE: 08/15/2019 PSYCHIATRIC PROGRESS NOTE This late entry, 08/15, covers elements not covered in my initial note. SUBJECTIVE: I met with the patient evening of 08/15. The patient slept 7-1/2 hours previous night. He has had some trouble swallowing; swallow study has been ordered. He has been coughing, somewhat choking at night and during the day on 08/15. REVIEW OF SYSTEMS: Shortness of breath, on O2 supplements, impaired ambulation in wheelchair. No CV, GI, system symptoms on review other than above. MENTAL STATUS EXAM: The patient is oriented to himself, at times situation. Speech has some latency, often responses monosyllabic. Abstraction fair, computation impaired, language function intact, attention span short. Mood and affect still somewhat withdrawn. LABORATORY DATA: Reviewed. IMPRESSION: Unchanged from initial note. PLAN: No change from initial note. We will do a swallow study. Maintain Zoloft, Risperdal, Exelon, Remeron, along with trazodone p.r.n., and melatonin 3 mg at bedtime. MAN Nany RYA MD DR: LEYDI/bethany JOB#: [id number] / [id number]
--- NOTE | 2019-08-17 23:41 | PN ---
DATE: 08/16/2019 PSYCHIATRIC PROGRESS NOTE This late entry 08/16/2019 covers elements not covered in my initial note. SUBJECTIVE: I met with the patient in the evening of 08/16/2019. The patient slept 5-3/4 hours previous night. He was compliant with his bedtime medications, was up at 1:00 a.m., received trazodone and Ativan, was screaming at times, had pulled out his Williamson with the balloon still inflated. A new Williamson has been placed and he has been placed in an onesie to prevent him pulling it out again. Behaviorally, he has done well on 08/16/2019. REVIEW OF SYSTEMS: Ambulation impaired, in wheelchair, shortness of breath, on O2 supplements. No CV, , eye, ENT system symptoms on review. Reliability poor. MENTAL STATUS EXAM: Oriented to himself. Insight, judgment, recent and remote memory, attention, concentration, fund of knowledge poor, consistent with his diagnosis mentioned in my initial note. PLAN: No change from initial note. MAN Nany RAY MD DR: LEYDI/bethany JOB#: [id number] / [id number]
[2019-08-18] MEDS: OLANZapine 5 MG TABLET PO PRN (01:59)
[2019-08-18] MEDS: traZODone 50 MG TABLET. PO PRN (01:59)
[2019-08-18 05:47] VITALS: BP 137/74
[2019-08-18] MEDS: INSULIN LISPRO 300 UNITS/3 ML VIAL. SQ SCH ×3 (08:00→17:05)
[2019-08-18] MEDS: POLYETHYLENE GLYCOL 3350 17 GM PACKET. PO SCH (08:07)
[2019-08-18] MEDS: FINASTERIDE 5 MG TABLET PO SCH (08:07)
[2019-08-18] MEDS: SERTRALINE 25 MG TABLET. PO SCH (08:08)
[2019-08-18] MEDS: METOPROLOL TART IMMED RELEASE 50 MG TABLET PO SCH ×2 (08:08→21:26)
[2019-08-18] MEDS: MECLIZINE 12.5 MG TABLET. PO SCH ×2 (08:08→21:27)
[2019-08-18] MEDS: LINAGLIPTIN 5 MG TABLET PO SCH (08:09)
[2019-08-18] MEDS: ACETAMINOPHEN 325 MG TABLET PO SCH ×2 (08:09→17:03)
[2019-08-18] MEDS: OXYBUTYNIN CHLORIDE 5 MG TABLET PO SCH ×2 (08:09→21:27)
[2019-08-18] MEDS: ASPIRIN 325 MG TABLET PO SCH (08:09)
[2019-08-18] MEDS: CYANOCOBALAMIN (VITAMIN B-12) 1,000 MCG TABLET. PO SCH (08:09)
[2019-08-18] MEDS: FERROUS SULFATE 325 MG TABLET. PO SCH ×3 (08:09→21:27)
[2019-08-18] MEDS: RIVASTIGMINE 9.5MG PATCH. TD SCH (08:10)
[2019-08-18] MEDS: NYSTATIN TOPICAL POWDER 15GM BOTTLE. TP SCH ×2 (11:31→21:28)
[2019-08-18 16:27] VITALS: BP 86/48
[2019-08-18 18:36] VITALS: BP 101/54
[2019-08-18] MEDS: INSULIN GLARGINE SYRINGE. SQ SCH (21:27)
[2019-08-18] MEDS: TAMSULOSIN 0.4 MG CAP.ER.24H. PO SCH (21:27)
[2019-08-18] MEDS: MELATONIN 3 MG TABLET PO SCH (21:27)
[2019-08-18] MEDS: risperiDONE 0.25 MG TABLET. PO SCH (21:27)
[2019-08-18] MEDS: diphenhydrAMINE HCL 25 MG CAPSULE PO SCH (21:27)
[2019-08-18] MEDS: ACETAMINOPHEN 500 MG TABLET PO SCH (21:27)
[2019-08-18] MEDS: MIRTAZAPINE 15 MG TABLET PO SCH (21:27)
--- NOTE | 2019-08-18 22:10 | PDOC ---
Exam Note: Ralph Note: Please also refer to the separate dictated note~for this date of service dictated separately.~Patient seen individually. Discussed the patient with Nursing staff reviewed the chart.~Reviewed interim history and current functioning. Reviewed vital signs,~Labs/ Radiology~and current medications noted below. Continue current treatment with the changes noted in the dictated addendum note Assessment: Vital Signs/I&O: Vital Signs Date Time Temp Pulse Resp B/P (MAP) Pulse Ox O2 Delivery O2 Flow Rate FiO2 08/18/19 21:26 78 144/65 08/18/19 18:36 98 08/18/19 16:27 97.6 16 2.0 I & O 08/17/19 08/17/19 08/18/19 15:00 23:00 07:00 Intake Total 720 ml 360 ml 100 ml Balance 720 ml 360 ml 100 ml Labs: Laboratory Tests Test 08/18/19 07:41 08/18/19 12:49 Glucose (Fingerstick) 93 mg/dL (70-99) 102 mg/dL (70-99) H Current Medications: I have reviewed the current psychotropics carefully including drug interactions. Risk benefit ratio favors no change other than as noted in my dictated progress note. 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
[2019-08-19] MEDS: traZODone 50 MG TABLET. PO PRN (01:30)
--- NOTE | 2019-08-19 03:32 | PN ---
DATE: 08/17/2019 PSYCHIATRIC PROGRESS NOTE This late entry, 08/17/2019, covers elements not covered in my initial note. SUBJECTIVE: I met with the patient in the evening. The patient was discussed with nursing staff, GAURAV Bedolla. UA has reflux to culture. The patient remains confused, was irritable in the morning, complains of feeling cold, was wearing extra covers in the evening, refused a.m. meds, took it later. REVIEW OF SYSTEMS: Ambulation impaired, in wheelchair; shortness of breath, on O2 supplements. No CV, , pulmonary, eye system symptoms on review. MENTAL STATUS EXAM: Oriented to himself. Insight, judgment, recent and remote memory, attention, concentration, fund of knowledge poor, consistent with his diagnosis mentioned in my initial note. PLAN: No change from initial note. MAN Nany RAY MD DR: LEYDI/bethany JOB#: [id number] / [id number]
[2019-08-19 05:49] VITALS: BP 123/67
[2019-08-19] MEDS: POLYETHYLENE GLYCOL 3350 17 GM PACKET. PO SCH (08:00)
[2019-08-19] MEDS: INSULIN LISPRO 300 UNITS/3 ML VIAL. SQ SCH ×3 (08:00→17:23)
[2019-08-19] MEDS: RIVASTIGMINE 9.5MG PATCH. TD SCH (08:01)
[2019-08-19] MEDS: FINASTERIDE 5 MG TABLET PO SCH (08:01)
[2019-08-19] MEDS: MECLIZINE 12.5 MG TABLET. PO SCH ×2 (08:01→19:49)
[2019-08-19] MEDS: FERROUS SULFATE 325 MG TABLET. PO SCH ×3 (08:01→19:49)
[2019-08-19] MEDS: ACETAMINOPHEN 325 MG TABLET PO SCH ×2 (08:01→17:22)
[2019-08-19] MEDS: LINAGLIPTIN 5 MG TABLET PO SCH (08:02)
[2019-08-19] MEDS: METOPROLOL TART IMMED RELEASE 50 MG TABLET PO SCH ×2 (08:02→19:50)
[2019-08-19] MEDS: SERTRALINE 25 MG TABLET. PO SCH (08:02)
[2019-08-19] MEDS: ASPIRIN 325 MG TABLET PO SCH (08:02)
[2019-08-19] MEDS: OXYBUTYNIN CHLORIDE 5 MG TABLET PO SCH ×2 (08:02→19:49)
[2019-08-19] MEDS: CYANOCOBALAMIN (VITAMIN B-12) 1,000 MCG TABLET. PO SCH (08:02)
[2019-08-19] MEDS: NYSTATIN TOPICAL POWDER 15GM BOTTLE. TP SCH ×2 (08:03→19:51)
[2019-08-19 16:02] VITALS: BP 112/64
[2019-08-19] MEDS: MELATONIN 3 MG TABLET PO SCH (19:48)
[2019-08-19] MEDS: TAMSULOSIN 0.4 MG CAP.ER.24H. PO SCH (19:49)
[2019-08-19] MEDS: diphenhydrAMINE HCL 25 MG CAPSULE PO SCH (19:49)
[2019-08-19] MEDS: ACETAMINOPHEN 500 MG TABLET PO SCH (19:50)
[2019-08-19] MEDS: risperiDONE 0.25 MG TABLET. PO SCH (19:50)
[2019-08-19] MEDS: MIRTAZAPINE 15 MG TABLET PO SCH (19:50)
[2019-08-19] MEDS: INSULIN GLARGINE SYRINGE. SQ SCH (19:51)
--- NOTE | 2019-08-19 21:26 | PDOC ---
Exam Note: Ralph Note: Please also refer to the separate dictated note~for this date of service dictated separately.~Patient seen individually. Discussed the patient with Nursing staff reviewed the chart.~Reviewed interim history and current functioning. Reviewed vital signs,~Labs/ Radiology~and current medications noted below. Continue current treatment with the changes noted in the dictated addendum note Assessment: Vital Signs/I&O: Vital Signs Date Time Temp Pulse Resp B/P (MAP) Pulse Ox O2 Delivery O2 Flow Rate FiO2 08/19/19 19:50 66 112/64 08/19/19 16:02 98.1 16 93 08/18/19 16:27 2.0 I & O 08/18/19 08/18/19 08/19/19 14:59 22:59 06:59 Intake Total 240 ml 240 ml 120 ml Output Total 1300 ml Balance -1060 ml 240 ml 120 ml Current Medications: I have reviewed the current psychotropics carefully including drug interactions. Risk benefit ratio favors no change other than as noted in my dictated progress note. 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
--- NOTE | 2019-08-20 03:21 | PN ---
DATE: 08/18/2019 PSYCHIATRIC PROGRESS NOTE This late entry 08/18/2019 covers elements not covered in my initial note. SUBJECTIVE: I met with the patient evening of 08/18/2019. Jose Angel Lewis RN patient slept 6 hours previous night. He was up till about 3:00 a.m., but then slept most of the time after that. He is trying to pull on his Williamson previous night. He is tired in the morning, had a speech evaluation and is on a dysphagia 3 diet. The plan is to transition him to [facility] where his will be going as well. REVIEW OF SYSTEMS: Ambulation impaired, in wheelchair, shortness of breath, on O2 supplements. No CV, , eye, ENT system symptoms on review. MENTAL STATUS EXAM: Oriented to himself. Insight, judgment, recent and remote memory, attention, concentration, fund of knowledge poor, consistent with his diagnosis mentioned in my initial note. IMPRESSION: Major neurocognitive disorder, Alzheimer, vascular with delusion, depression, behavioral disturbance; anxiety disorder, unspecified; impulse control disorder, unspecified. Rest unchanged. PLAN: No change from initial note. MAN Nany RAY MD DR: LEYDI/bethany JOB#: [id number] / [id number]
[2019-08-20 05:36] VITALS: BP 121/58
[2019-08-20] MEDS: INSULIN LISPRO 300 UNITS/3 ML VIAL. SQ SCH ×3 (08:00→17:30)
[2019-08-20] MEDS: SERTRALINE 25 MG TABLET. PO SCH (08:02)
[2019-08-20] MEDS: CYANOCOBALAMIN (VITAMIN B-12) 1,000 MCG TABLET. PO SCH (08:02)
[2019-08-20] MEDS: OXYBUTYNIN CHLORIDE 5 MG TABLET PO SCH ×2 (08:03→19:59)
[2019-08-20] MEDS: METOPROLOL TART IMMED RELEASE 50 MG TABLET PO SCH ×2 (08:03→20:03)
[2019-08-20] MEDS: RIVASTIGMINE 9.5MG PATCH. TD SCH (08:03)
[2019-08-20] MEDS: ASPIRIN 325 MG TABLET PO SCH (08:03)
[2019-08-20] MEDS: FERROUS SULFATE 325 MG TABLET. PO SCH ×3 (08:03→19:59)
[2019-08-20] MEDS: LINAGLIPTIN 5 MG TABLET PO SCH (08:03)
[2019-08-20] MEDS: ACETAMINOPHEN 325 MG TABLET PO SCH ×2 (08:04→17:30)
[2019-08-20] MEDS: MECLIZINE 12.5 MG TABLET. PO SCH ×2 (08:04→20:00)
[2019-08-20] MEDS: POLYETHYLENE GLYCOL 3350 17 GM PACKET. PO SCH (08:04)
[2019-08-20] MEDS: FINASTERIDE 5 MG TABLET PO SCH (08:04)
[2019-08-20] MEDS: NYSTATIN TOPICAL POWDER 15GM BOTTLE. TP SCH ×2 (08:07→20:00)
[2019-08-20 13:25] LABS: BASO % 0 % (0-3); EOS # 0.2 x10^3/uL (0.0-0.7); EOS % 3 % (0-3); HEMATOCRIT 29.3 % (39.0-53.0); HEMOGLOBIN 9.6 g/dL (13.0-17.5); LYMPH % 16 % (24-48); MEAN CORPUSCULAR HEMOGLOBIN 32 pg (25-35); MEAN CORPUSCULAR HGB CONC 33 g/dL (31-37); MEAN CORPUSCULAR VOLUME 98 fL (79-100); MONO # 0.7 x10^3/uL (0.0-1.1); MONO % 11 % (0-9); NEUT # 4.3 x10^3uL (1.8-7.7); NEUT % 70 % (31-73); PLATELET COUNT 318 x10^3/uL (140-400); RED BLOOD COUNT 2.98 x10^6/uL (4.30-5.70); WHITE BLOOD COUNT 6.2 x10^3/uL (4.0-11.0)
[2019-08-20 13:37] LABS: ALBUMIN 2.8 g/dL (3.4-5.0); ALBUMIN/GLOBULIN RATIO 0.6 (1.0-1.7); CALCIUM 9.2 mg/dL (8.5-10.1); CREATININE 1.8 mg/dL (0.7-1.3); GFR 35.9; POTASSIUM 5.3 mmol/L (3.5-5.1); TOTAL BILIRUBIN 0.2 mg/dL (0.2-1.0); TOTAL PROTEIN 7.5 g/dL (6.4-8.2)
[2019-08-20] MEDS ORDERED: RIVA1PAT23 TP (14:03)
[2019-08-20] MEDS ORDERED: ACET325T9 PO (14:24)
[2019-08-20] MEDS ORDERED: ACET500T68 PO (14:27)
[2019-08-20] MEDS ORDERED: CHOL500021 PO (14:29)
[2019-08-20] MEDS ORDERED: FINA5TAB PO (14:32)
[2019-08-20] MEDS ORDERED: INSU100I13 SQ (14:33)
[2019-08-20] MEDS ORDERED: INSU100V SQ (14:34)
[2019-08-20] MEDS ORDERED: MAGN2400 PO (14:41)
[2019-08-20] MEDS ORDERED: MAG355OR17 PO (14:41)
[2019-08-20] MEDS ORDERED: MELA3TAB56 PO (14:42)
[2019-08-20] MEDS ORDERED: METH28OI2 TP (14:43)
[2019-08-20] MEDS ORDERED: MIRT15TA PO (14:44)
[2019-08-20] MEDS ORDERED: NYST15PO9 TP (14:45)
[2019-08-20] MEDS ORDERED: OXYB5TAB10 PO (14:47)
[2019-08-20] MEDS ORDERED: SERT50TA PO (14:48)
[2019-08-20] MEDS ORDERED: TAMS0.4C97 PO (14:51)
[2019-08-20] MEDS ORDERED: RISP0.2519 PO (14:51)
[2019-08-20] MEDS ORDERED: TRAZ-120 PO (14:52)
[2019-08-20 16:46] VITALS: BP 146/65
[2019-08-20] MEDS: MIRTAZAPINE 15 MG TABLET PO SCH (19:59)
[2019-08-20] MEDS: risperiDONE 0.25 MG TABLET. PO SCH (19:59)
[2019-08-20] MEDS: MELATONIN 3 MG TABLET PO SCH (20:00)
[2019-08-20] MEDS: diphenhydrAMINE HCL 25 MG CAPSULE PO SCH (20:00)
[2019-08-20] MEDS: ACETAMINOPHEN 500 MG TABLET PO SCH (20:00)
[2019-08-20] MEDS: TAMSULOSIN 0.4 MG CAP.ER.24H. PO SCH (20:00)
[2019-08-20] MEDS: traZODone 50 MG TABLET. PO PRN (20:03)
[2019-08-20] MEDS: INSULIN GLARGINE SYRINGE. SQ SCH (20:56)
--- NOTE | 2019-08-20 21:44 | PDOC ---
Exam Note: Ralph Note: Please also refer to the separate dictated note~for this date of service dictated separately.~Patient seen individually. Discussed the patient with Nursing staff reviewed the chart.~Reviewed interim history and current functioning. Reviewed vital signs,~Labs/ Radiology~and current medications noted below. Continue current treatment with the changes noted in the dictated addendum note Assessment: Vital Signs/I&O: Vital Signs Date Time Temp Pulse Resp B/P (MAP) Pulse Ox O2 Delivery O2 Flow Rate FiO2 08/20/19 20:03 72 146/65 08/20/19 16:46 97.8 16 98.0 08/20/19 05:36 97 I & O 08/19/19 08/19/19 08/20/19 15:00 23:00 07:00 Intake Total 960 ml 200 ml Balance 960 ml 200 ml Labs: Laboratory Tests Test 08/20/19 13:10 White Blood Count 6.2 x10^3/uL (4.0-11.0) Red Blood Count 2.98 x10^6/uL (4.30-5.70) L Hemoglobin 9.6 g/dL (13.0-17.5) L Hematocrit 29.3 % (39.0-53.0) L Mean Corpuscular Volume 98 fL (79-100) Mean Corpuscular Hemoglobin 32 pg (25-35) Mean Corpuscular Hemoglobin Concent 33 g/dL (31-37) Red Cell Distribution Width 15.0 % (11.5-14.5) H Platelet Count 318 x10^3/uL (140-400) Neutrophils (%) (Auto) 70 % (31-73) Lymphocytes (%) (Auto) 16 % (24-48) L Monocytes (%) (Auto) 11 % (0-9) H Eosinophils (%) (Auto) 3 % (0-3) Basophils (%) (Auto) 0 % (0-3) Neutrophils # (Auto) 4.3 x10^3uL (1.8-7.7) Lymphocytes # (Auto) 1.0 x10^3/uL (1.0-4.8) Monocytes # (Auto) 0.7 x10^3/uL (0.0-1.1) Eosinophils # (Auto) 0.2 x10^3/uL (0.0-0.7) Basophils # (Auto) 0.0 x10^3/uL (0.0-0.2) Sodium Level 138 mmol/L (136-145) Potassium Level 5.3 mmol/L (3.5-5.1) H Chloride Level 102 mmol/L (98-107) Carbon Dioxide Level 26 mmol/L (21-32) Anion Gap 10 (6-14) Blood Urea Nitrogen 49 mg/dL (8-26) H Creatinine 1.8 mg/dL (0.7-1.3) H Estimated GFR (Cockcroft-Gault) 35.9 BUN/Creatinine Ratio 27 (6-20) H Glucose Level 364 mg/dL (70-99) H Calcium Level 9.2 mg/dL (8.5-10.1) Total Bilirubin 0.2 mg/dL (0.2-1.0) Aspartate Amino Transferase (AST) 9 U/L (15-37) L Alanine Aminotransferase (ALT) 9 U/L (16-63) L Alkaline Phosphatase 91 U/L (46-116) Total Protein 7.5 g/dL (6.4-8.2) Albumin 2.8 g/dL (3.4-5.0) L Albumin/Globulin Ratio 0.6 (1.0-1.7) L Current Medications: I have reviewed the current psychotropics carefully including drug interactions. Risk benefit ratio favors no change other than as noted in my dictated progress note. 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
[2019-08-21 05:52] VITALS: BP 124/64
[2019-08-21] MEDS: INSULIN LISPRO 300 UNITS/3 ML VIAL. SQ SCH ×2 (08:00→12:00)
[2019-08-21] MEDS: ASPIRIN 325 MG TABLET PO SCH (08:02)
[2019-08-21] MEDS: FERROUS SULFATE 325 MG TABLET. PO SCH ×2 (08:02→13:39)
[2019-08-21] MEDS: POLYETHYLENE GLYCOL 3350 17 GM PACKET. PO SCH (08:02)
[2019-08-21] MEDS: OXYBUTYNIN CHLORIDE 5 MG TABLET PO SCH (08:03)
[2019-08-21] MEDS: LINAGLIPTIN 5 MG TABLET PO SCH (08:03)
[2019-08-21] MEDS: SERTRALINE 25 MG TABLET. PO SCH (08:03)
[2019-08-21] MEDS: METOPROLOL TART IMMED RELEASE 50 MG TABLET PO SCH (08:03)
[2019-08-21] MEDS: ACETAMINOPHEN 325 MG TABLET PO SCH (08:03)
[2019-08-21] MEDS: CYANOCOBALAMIN (VITAMIN B-12) 1,000 MCG TABLET. PO SCH (08:04)
[2019-08-21] MEDS: NYSTATIN TOPICAL POWDER 15GM BOTTLE. TP SCH (08:04)
[2019-08-21] MEDS: RIVASTIGMINE 9.5MG PATCH. TD SCH (08:04)
[2019-08-21] MEDS: FINASTERIDE 5 MG TABLET PO SCH (08:04)
[2019-08-21] MEDS: MECLIZINE 12.5 MG TABLET. PO SCH (08:04)
--- NOTE | 2019-08-21 12:59 | DS ---
DATE OF DISCHARGE: 08/21/2019 DISCHARGE SUMMARY-PSYCHIATRIC PROGRESS NOTE This note covers elements not covered in my initial note on 08/21/2019. REASON FOR ADMISSION: Please refer to the admission history for details. Briefly, the patient is an 89-year-old male referred to us from [facility] on account of worsening confusion, increasing agitation, swinging at staff, having active hallucinations of seeing cats, wandering into others' rooms, threatening to staff. He had failed outpatient psychiatric interventions, was increasingly psychotic, depressed, agitated within the context of his dementia, admitted for inpatient psychiatric stabilization. SIGNIFICANT FINDINGS AND CLINICAL COURSE: Following admission, the patient was seen daily individually by myself from a psychiatric standpoint, medical followup per Dr. Cheek. The patient remains confused, intermittently agitated, dismissive, paranoid. Adjustments were made in his psychotropics. He seemed to respond to a combination of Risperdal 0.25 mg at bedtime, Exelon patch 9.5 mg daily, Remeron 15 mg at bedtime, Ativan 0.5 mg q.6 hours p.r.n. anxiety, Zyprexa 5 mg t.i.d. p.r.n. psychosis and agitation, trazodone 50 mg at bedtime p.r.n., may repeat x 1, melatonin 3 mg at bedtime, Zoloft 75 mg at bedtime. Prior to discharge on 08/21/2019, ambulation impaired, in wheelchair, shortness of breath, on O2 supplements. No CV, GI, , eye system symptoms on review. Reliability poor. MENTAL STATUS EXAM: Oriented to himself. Insight, judgment, recent and remote memory, attention, concentration, fund of knowledge poor, consistent with his diagnosis. FINAL DIAGNOSES: Major neurocognitive disorder; Alzheimer, vascular with delusion, depression, behavioral disturbance; anxiety disorder, unspecified; impulse control disorder, unspecified. Rest unchanged from admission. DISCHARGE MEDICATIONS: Please refer to the MRAD. DISCHARGE INSTRUCTIONS: Outpatient psychiatric and medical followup at the [facility] He would be joining his . MAN Nany RAY MD DR: LEYDI/bethany JOB#: [id number] / [id number]
[2019-08-21 16:17] VITALS: BP 119/65
--- NOTE | 2019-08-21 19:36 | PN ---
DATE: 08/19/2019 This late entry of 08/19/2019 covers elements not covered in my initial note. SUBJECTIVE: I met with the patient in the evening. Per Graeme RN, the patient slept for 3/4 hours previous night. He was irritable at night, complains of feeling cold and wanting to lie down repeatedly. Trazodone was repeated at night, irritable in the morning. Williamson was discontinued per Dr. Santana. REVIEW OF SYSTEMS: Impaired ambulation in wheelchair, shortness of breath on O2 supplements. No CV, , eye system symptoms on review. MENTAL STATUS EXAM: Oriented to himself. Insight, judgment, recent and remote memory, attention, concentration, fund of knowledge poor, consistent with his diagnosis mentioned in my initial note. PLAN: No change from initial note. MAN Nany RAY MD DR: LEYDI/bethany JOB#: [id number] / [id number]
--- NOTE | 2019-08-21 19:38 | PN ---
DATE: 08/20/2019 PSYCHIATRIC PROGRESS NOTE This late entry 08/20/2019 covers elements not covered in my initial note. SUBJECTIVE: I met with the patient in the evening and staffed at a treatment team meeting with the entire team in the morning. The patient slept 6 hours. Appetite 75-100% compliant with meds and assessment. His has been transitioned to [facility], which is where he will be transitioned on 08/21. REVIEW OF SYSTEMS: Shortness of breath on O2 supplements, impaired ambulation in wheelchair. No CV, , eye system symptoms on review. Reliability poor. MENTAL STATUS EXAM: Oriented to himself. Insight, judgment, recent and remote memory, attention, concentration, fund of knowledge poor, consistent with his diagnosis mentioned in my initial note. PLAN: No change from initial note. [facility]. MAN Nany RAY MD DR: LEYDI/bethany JOB#: [id number] / [id number]
--- NOTE | 2019-08-21 21:26 | PDOC ---
Exam Note: Ralph Note: Please also refer to the separate dictated note~for this date of service dictated separately.~Patient seen individually. Discussed the patient with Nursing staff reviewed the chart.~Reviewed interim history and current functioning. Reviewed vital signs,~Labs/ Radiology~and current medications noted below. Continue current treatment with the changes noted in the dictated addendum note Assessment: Vital Signs/I&O: Vital Signs Date Time Temp Pulse Resp B/P (MAP) Pulse Ox O2 Delivery O2 Flow Rate FiO2 08/21/19 16:17 97.9 64 16 119/65 (83) 96 08/20/19 16:46 98.0 I & O 08/20/19 08/20/19 08/21/19 15:00 23:00 07:00 Intake Total 960 ml 360 ml Balance 960 ml 360 ml Current Medications: I have reviewed the current psychotropics carefully including drug interactions. Risk benefit ratio favors no change other than as noted in my dictated progress note. 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
== END 2019-08-21 15:45 | DRG 57 ==
LOC: GEROPSY 20:35
PROVIDERS: ADMIT Psychiatry & Neurology Psychiatry; ATTEND Psychiatry & Neurology Psychiatry
DX: G30.9 Alzheimer's disease, unspecified (principal); F33.9 Major depressive disorder, recurrent, unspecified; G25.9 Extrapyramidal and movement disorder, unspecified; N18.9 Chronic kidney disease, unspecified; F02.80 Dementia in other diseases classified elsewhere, unspecified severity, without behavioral disturbance, psychotic disturbance, mood disturbance, and anxiety; F41.9 Anxiety disorder, unspecified; F63.9 Impulse disorder, unspecified; E11.22 Type 2 diabetes mellitus with diabetic chronic kidney disease; I12.9 Hypertensive chronic kidney disease with stage 1 through stage 4 chronic kidney disease, or unspecified chronic kidney disease; Z66 Do not resuscitate; Z79.899 Other long term (current) drug therapy; D63.8 Anemia in other chronic diseases classified elsewhere; F01.50 Vascular dementia, unspecified severity, without behavioral disturbance, psychotic disturbance, mood disturbance, and anxiety; I25.10 Atherosclerotic heart disease of native coronary artery without angina pectoris; M19.90 Unspecified osteoarthritis, unspecified site; Z88.1 Allergy status to other antibiotic agents; Z88.8 Allergy status to other drugs, medicaments and biological substances
CPT/HCPCS: 36415; 71045; 71046; 73610; 76770; 80053; 80061; 81001; 82306; 82947; 83036; 83540; 83550; 83735; 84436; 84443; 84480; 85025; 86592; 87086; 90471; 90686; 93005; J1815; J7512; J8597; Q0163; 92610; 97110; 97116; 97530; 97535